=== PATIENT | male | born 1975 | race Two or more races ===

== ENCOUNTER 2024-10-16 15:08 | Inpatient (IN) | payer BC, OTHER ==
[~2024-10-16] VITALS: Ht 172.7 cm; Wt 98.6 kg
--- NOTE | 2024-10-16 16:12 | ED.PDOC ---
GI ASSESSMENT HPI Comments A 48 YEAR OLD MALE PRESENTS TO THE ED WITH COMPLAINT OF UPPER ABDOMINAL PAIN THAT RADIATES TO LOWER ABDOMEN, CONSTIPATION, AND SUPRAPUBIC PRESSURE. PATIENT STATES HE HAS BEEN EXPERIENCING UPPER ABDOMINAL PAIN THAT RADIATES TO HIS LOWER ABDOMEN, CONSTIPATION, AND SUPRAPUBIC PRESSURE FOR THE PAST 5 DAYS. PATIENT NOTES HIS SYMPTOMS STARTED AFTER EATING A LARGE MEAL 5 DAYS AGO. PATIENT ALSO NOTES THAT HE VOMITED ONE TIME AND NOTICED A SMALL AMOUNT OF BLOOD IN HIS VOMIT. PATIENT DENIES RECTAL BLEEDING, FEVER, CHILLS, SHORTNESS OF BREATH, CHEST PAIN, HEADACHE, OR OTHER COMPLAINTS. NO OTHER SYMPTOMS OR MODIFYING FACTORS AT THIS TIME. PATIENT IS ALERT, ORIENTED X 4, AND HAS STEADY GAIT. Chief Complaint: Abdominal Pain Time Seen by MD: 15:12 Reviewed Notes: Nurses Notes, Medications, Allergies Allergies: Coded Allergies: NO KNOWN ALLERGIES (Unverified , 10/16/24) Information Source: Patient Mode of Arrival: Ambulatory Timing: Days Duration: Since onset, Days Prehospital treatment: None Quality: Aching, Cramping, Colicky Vomitus: Food Particles, None Severity: Moderate Recent: None Recent Hx of: None Pain Location: Epigastric, RLQ, LLQ, Suprapubic, Other (UPPER ABDOMEN) Modifying Factors: Nothing Associated sign and symptoms: Nausea, Vomiting, Abdominal Pain Past Medical History PAST MEDICAL HISTORY: Denies Surgical History: Denies all surgeries Family History Family History: Reviewed,noncontributory to illness Social History Smoker: Non-Smoker Alcohol: Denies ETOH Use Drugs: Denies Drug Use Lives In: Home Constitutional: denies: chills, diaphoresis, fatigue, fever, malaise, sweats, weakness, others EENTM: denies: blurred vision, double vision, ear bleeding, ear discharge, ear drainage, ear pain, ear ringing, eye pain, eye redness, hearing loss, mouth p ain, mouth swelling, nasal discharge, nose bleeding, nose congestion, nose pain, photophobia, tearing, throat pain, throat swelling, voice changes, others Respiratory: denies: cough, hemoptysis, orthopnea, SOB at rest, shortness of br eath, SOB with excertion, stridor, wheezing, others Cardiovascular: denies: chest pain, dizzy spells, diaphoresis, Dyspnea on exertion, edema, irregular heart beat, left arm pain, lightheadedness, palpitations, PND, syncope, others Gastrointestinal: reports: abdominal pain, constipated, nausea, vomiting; denies: abdomen distended, blood streaked bowels, diarrhea, dysphagia, difficu lty swallowing, hematemesis, melena, poor appetite, poor fluid intake, rectal bleeding, rectal pain, others Genitourinary: reports: pain (SUPRAPUBIC PRESSURE); denies: burning, dysuria, flank pain, frequency, hematuria, incontinence, penile discharge, penile sore, testicle pain, testicle swelling, urgency, others Neurological: denies: dizziness, fainting, headache, left sided numbness, left sided weakness, numbness, paresthesia, pre-existing deficit, right sided numbness, right sided weakness, seizure, speech problems, tingling, tremors, weakness, others Musculoskeletal: denies: back pain, gout, joint pain, joint swelling, muscle pain, muscle stiffness, neck pain, others Integumetry: denies: bruises, change in color, change in hair/nails, dryness, laceration, lesions, lumps, rash, wounds, others Allergic/Immunocompromised: denies: Difficulty Healing, Frequent Infections, Hives, Itching, others Hematologic/Lymphatic: denies: anemia, blood clots, easy bleeding, easy bruising, swollen glands, others Endocrine: denies: excessive hunger, excessive sweating, excessive thirst, excessive urination, flushing, intolerance to cold, intolerance to heat, unexplained weight gain, unexplained weight loss, others Psychiatric: denies: anxiety, bipolar disorder, depression, hopeless, panic disorder, schizophrenia, sleepless, suicidal, others All Other Systems: Reviewed and Negative Physical Exam General Appearance: No Apparent Distress, Normal HEENT: Normal ENT Inspection, PERRL/EOMI, Pharynx Normal, TMs Normal Neck: Full Range of Motion, Non-Tender, Normal, Normal Inspection Respiratory: Chest Non-Tender, Lungs Clear, No Accessory Muscle Use, No Respiratory Distress, Normal Breath Sounds Cardiovascular: No Edema, No JVD, No Murmur, No Gallop, Normal Peripheral Pulses, Regular Rate/Rhythm Breast Exam: Deferred Gastrointestinal: Distended (MILDLY DISTENDED ABDOMEN NOTED.), Epigastric, LLQ, No Organomegaly, No Pulsatile Mass, Normal Bowel Sounds, RLQ, Soft, Tenderness ( LOWER ABD WITH GUARDING AND NO REBOUND TENDERNESS. ) Genitalia: Deferred Pelvic: Deferred Rectal: Heme negative stool, Hemorrhoids, Normal rectal tone, Tenderness (RECTAL REGION WITH ONE EXTERNAL HEMORRHOID, NO RECTAL BLEEDING AND BLOOD CLOTS. ) Extremities: No calf tenderness, Normal capillary refill, Normal inspection, Normal range of motion, Non-tender, No pedal edema Musculoskeletal : Apperance: Normal Neurologic: Alert, plastic extrusion operator II-XII nml as Tested, No Motor Deficits, Normal Affect, Normal Mood, No Sensory Deficits Cerebellar Function: Normal Reflexes: Normal Skin: Dry, Normal Color, Warm Peripheral Pulses: 2+ carotid (R), 2+ carotid (L) Lymphatic: No Adenopathy Was a procedure done? Was a procedure done?: No GI differential Dx Differential Diagnosis: Appendicitis, Bowel Obstruction, Constipation, Diverticular disease, Gastritis/PUD, GI hemorrhage, Urolithiasis, Kidney Stone X-Ray, Labs, Meds, VS Vital Signs Date Time Temp Pulse Resp B/P (MAP) Pulse Ox O2 Delivery O2 Flow Rate FiO2 10/16/24 20:00 72 10/16/24 19:18 98.3 79 25 122/72 (89) 96 98.3 10/16/24 19:18 98.3 79 25 122/72 (89) 96 98.3 10/16/24 19:18 79 25 96 Room Air* 0 21 10/16/24 18:59 81 23 95 Room Air* 0 21 10/16/24 18:59 98.8 81 23 140/83 (102) 95 98.8 10/16/24 18:11 97.9 92 17 160/93 (115) 98 97.9 10/16/24 15:55 98.9 97 16 132/89 (103) 98 98.9 10/16/24 15:55 97 16 98 Room Air 10/16/24 15:51 98.9 97 16 132/89 (103) 98 98.9 Lab Test 10/16/24 17:05 10/16/24 16:19 10/16/24 15:42 Range/Units Lactic Acid Level 2.0 0.4-2.0 mmol/L White Blood Count 18.2 H 4.4-10.8 10^3/uL Red Blood Count 5.90 4.5-5.90 10^6/uL Hemoglobin 17.5 13.5-17.5 g/dL Hematocrit 52.3 41.0-53.0 % Mean Corpuscular Volume 88.6 80.0-100.0 fL Mean Corpuscular Hemoglobin 29.7 28.0-32.0 pg Mean Corpuscular Hemoglobin Concent 33.5 32.0-36.0 g/dL Red Cell Distribution Width 13.5 11.8-14.3 % Platelet Count 247 140-450 10^3/uL Mean Platelet Volume 8.3 6.9-10.8 fL Neutrophils (%) (Auto) 78.1 37.0-80.0 % Lymphocytes (%) (Auto) 12.8 10.0-50.0 % Monocytes (%) (Auto) 8.7 0.0-12.0 % Eosinophils (%) (Auto) 0.1 0.0-7.0 % Basophils (%) (Auto) 0.3 0.0-2.0 % Neutrophils # (Auto) 14.2 H 1.6-8.6 10 ^3/uL Lymphocytes # (Auto) 2.3 0.4-5.4 10 ^3/uL Monocytes # (Auto) 1.6 H 0-1.3 10 ^3/uL Eosinophils # (Auto) 0 0-0.8 10 ^3/uL Basophils # (Auto) 0.1 0-0.2 10 ^3/uL Nucleated Red Blood Cells 0.1 % Prothrombin Time 10.9 9.3-11.8 sec Prothrombin Time INR 1.03 0.9-1.15 Sodium Level 142 136-145 mmol/L Potassium Level 4.1 3.5-5.1 mmol/L Chloride Level 108 H 98-107 mmol/L Carbon Dioxide Level 26 20-31 mmol/L Anion Gap 8 5-15 Blood Urea Nitrogen 12 9-23 mg/dL Creatinine 1.05 0.700-1.30 mg/dL Glomerular Filtration Rate Calc 88 >90 mL/min BUN/Creatinine Ratio 11.4 10.0-20.0 Serum Glucose 95 74-106 mg/dL Calcium Level 9.9 8.7-10.4 mg/dL Total Bilirubin 1.3 H 0.2-1.0 mg/dL Aspartate Amino Transferase (AST) 15 13-40 U/L Alanine Aminotransferase (ALT) 34 7-40 U/L Alkaline Phosphatase 80 46-116 U/L Total Protein 7.8 5.7-8.2 g/dL Albumin 4.8 3.2-4.8 g/dL Lipase 29 12-53 U/L Plasma/Serum Blood Alcohol < 3.0 <10 mg/dL Urine Color Light-orange Yellow Urine Clarity Ex.turbid Clear Urine pH 6.0 5.0-9.0 Urine Specific [place] 1.030 1.001-1.035 Urine Protein Trace H Negative Urine Ketones Negative Negative Urine Blood 2+ H Negative /uL Urine Nitrite Negative Negative Urine Bilirubin Negative Negative Urine Urobilinogen Normal Negative mg/dL Urine Leukocyte Esterase Negative Negative /uL Urine RBC 3 0 - 3 /hpf Urine Microscopic WBC 0-3 /HPF Urine Squamous Epithelial Cells Few <5 /hpf Urine Bacteria Few H None Seen /hpf Urine Mucus Few None Seen Urine Glucose Normal Normal mg/dL Urine Opiates Screen Neg NEGATIVE Urine Fentanyl Screen Neg NEGATIVE Urine Barbiturates Screen Neg NEGATIVE Urine Phencyclidine Screen Neg NEGATIVE Urine Amphetamines Screen Neg NEGATIVE Urine Benzodiazepines Screen Neg NEGATIVE Urine Cocaine Screen Neg NEGATIVE Urine Cannabinoids Screen Pos NEGATIVE Current Medications Medications (Trade) Dose Ordered Sig/Marco Route Start Time Stop Time Status Last Admin Sodium Chloride 1,000 ml @ 1,000 mls/hr Q1H ONCE IV 10/16/24 16:30 10/16/24 17:29 DC 10/16/24 16:33 Metronidazole 100 ml @ 100 mls/hr ONCE ONCE IV 10/16/24 18:00 10/16/24 18:59 DC 10/16/24 18:48 Levofloxacin/ Dextrose 100 ml @ 100 mls/hr ONCE ONCE IV 10/16/24 18:00 10/16/24 18:59 DC 10/16/24 20:00 Sodium Chloride 1,000 ml @ 1,000 mls/hr Q1H ONCE IV 10/16/24 18:15 10/16/24 19:14 DC 10/16/24 18:18 X-Ray, Labs, Meds, VS Comment EXTERNAL MEDICAL RECORDS REVIEWED: [NONE] INDEPENDENT HISTORIANS: [NONE] SOCIAL DETERMINANTS OF HEALTH: [NONE] LABS ORDERED: CBC, CMP, LIPASE, UA, PT INR REVIEWED AND INTERPRETED RESULTS: WBC 18.2, CANNABIS POSITIVE IMAGING ORDERED: CT ABD/PEL, XR CHEST TREATMENTS ORDERED: NS 2 L IV, MORPHINE 4 MG, ZOFRAN 4 MG IV, LEVAQUIN 500 MG IV, FLAGYL 500 MG IV PROCEDURES PERFORMED: NONE CRITICAL CARE TIME: YES, 45 MINUTES I HAVE DISCUSSED THE PATIENT WITH THE ATTENDING PHYSICIAN DR. APPIAH AND HE AGREES WITH THE PATIENT'S PLAN OF CARE. UPON MY PHYSICAL EXAMINATION, THE PATIENT HAD GUARDING NOTED UPON PALPATION TO HIS ABDOMEN AND MILD DISTENTION NOTED RIGHT, BUT NO REBOUND TENDERNESS NOTED UPON PALPATION TO HIS ABDOMEN. MY DIFFERENTIAL DIAGNOSIS INCLUDES, BOWEL OBSTRUCTION, GERD, GASTRITIS, CHOLELITHIASIS, DIVERTICULITIS, PANCREATITIS, COLITIS, APPENDICITIS. LABS ORDERED FOR THE PATIENT WHICH REVEALED AN ELEVATED WHITE BLOOD COUNT OF 18.2, BUT NO OTHER ACUTE FINDINGS. A CT SCAN OF THE PATIENT'S ABDOMEN AND PELVIS WAS DONE WHICH REVEALED ACUTE MID SIGMOID DIVERTICULITIS COMPLICATED WITH PERFORATION. DUE TO THE PATIENT'S CT SCAN RESULTS, I HAVE DETERMINED THE PATIENT NEEDS TO BE ADMITTED FOR FURTHER TREATMENT EVALUATION. THE ON-CALL GENERAL SURGEON WILL BE CONSULTED AND THE ON- CALL HOSPITALIST WILL BE CONTACTED FOR ADMISSION OF THIS PATIENT. 1754: I HAVE CONSULTED THE ON-CALL GENERAL SURGEON DR. LOWE REGARDING THIS PATIENT'S CASE AND CT SCAN RESULTS REVEALING PERFORATED DIVERTICULITIS AND HE HAS AGREED TO CONSULT ON THIS PATIENT'S CASE AND WILL COME TO SEE THE PATIENT SHORTLY AND POSSIBLY DO SURGERY FOR THE PATIENT. Images Reviewed?: Images reviewed and evaluated by me Time of 1ST Reevaluation: 18:00 Reevaluation 1ST: Unchanged Consultation: Surgery (1754: I HAVE CONSULTED THE ON-CALL GENERAL SURGEON DR. LOWE REGARDING THIS PATIENT'S CASE AND CT SCAN RESULTS REVEALING PERFORATED DIVERTICULITIS AND HE HAS AGREED TO CONSULT ON THIS PATIENT'S CASE.) Patient Education/Counseling: Diagnosis, Treatment Family Education/Counseling: Diagnosis, Treatment Departure 1 Departure Time of Disposition: 18:05 Impression: Primary Impression: Diverticulitis of colon with perforation Disposition: ADMITTED INPATIENT Condition: Serious Critical Care Note Critical Care Time?: Yes (45 min-critical care time only) Critical care comment: CRITCAL CARE WAS TIME SPENT PERSONALLY BY ME ON THE FOLLOWING ACTIVITIES: OBTAINING HISTORY OF THE PATIENT. DEVELOPMENT OF TREATMENT PLAN WITH PATIENT. EVALUATION OF PATIENT'S RESPONSE TO TREATMENT. EXAMINATION OF THE PATIENT X 3. INTERPRETATION OF CARDIAC OUTPUT MEASUREMENTS. ORDERING INTERVENTIONS. ORDERING AND REVIEW OF LABORATORY AND RADIOLOGY STUDIES. RE-EVALUATION OF PATIENT'S CONDITIONS 3 TIMES. REVIEW OF OLD CHARTS. DOCUMENTATION OF THE PATIENT HAD A HIGH PROBABILITY OF IMMINENT, LIFE- THREATENING DETERIORATION. CRITICAL CARE TIME EXCLUDES TIME SPENT PERFORMING BILLABLE PROCEDURES. Stability Stability form required: Yes Unstable for transfer: Requires medication, ED Physician Assesment, Possible rapid decline Heart Score Heart Score: Heart Score Response (Comments) Value History N/A 0 EKG N/A 0 Age N/A 0 Risk Factors N/A 0 Troponin N/A 0 Total 0 I personally scribed for LIBRADO FERGUSON ([email or web address]) on 10/16/24 at 16:12. Electronically submitted by Rick Pardo ([place]). I personally scribed for LIBRADO FERGUSON ([email or web address]) on 10/16/24 at 17:54. Electronically submitted by Rick Pardo ([place]). I personally scribed for LIBRADO FERGUSON ([email or web address]) on 10/16/24 at 18:03. Electronically submitted by Rick Pardo ([place]). I personally scribed for LIBRADO FERGUSON ([email or web address]) on 10/16/24 at 18:06. Electronically submitted by Rick Pardo ([place]). LIBRADO FERGUSON Oct 16, 2024 16:12
[2024-10-16] MEDS: SODIUM CHLORIDE 0.9% 1,000 ML IV ONE ×2 (16:33→18:18)
[2024-10-16 16:48] LABS: Basophils # (auto) 0.1 10 ^3/uL (0-0.2); Basophils % (auto) 0.3 % (0.0-2.0); Eosinophils # (auto) 0 10 ^3/uL (0-0.8); Eosinophils % (auto) 0.1 % (0.0-7.0); Hematocrit 52.3 % (41.0-53.0); Hemoglobin 17.5 g/dL (13.5-17.5); Lymphocytes # (auto) 2.3 10 ^3/uL (0.4-5.4); Lymphocytes % (auto) 12.8 % (10.0-50.0); Mean Corpuscular Hemoglobin 29.7 pg (28.0-32.0); Mean Corpuscular Hgb Conc. 33.5 g/dL (32.0-36.0); Mean Corpuscular Volume 88.6 fL (80.0-100.0); Monocytes # (auto) 1.6 10 ^3/uL (0-1.3); Monocytes % (auto) 8.7 % (0.0-12.0); Neutrophils # (auto) 14.2 10 ^3/uL (1.6-8.6); Neutrophils % (auto) 78.1 % (37.0-80.0); Nucleated Red Blood Cells % 0.1 %; Platelet Count (auto) 247 10^3/uL (140-450); Red Cell Distribution Width 13.5 % (11.8-14.3); White Blood Cell 18.2 10^3/uL (4.4-10.8)
[2024-10-16 17:02] LABS: INR 1.03 (0.9-1.15); Prothrombin Time 10.9 sec (9.3-11.8)
[2024-10-16 17:08] LABS: Alanine Aminotransferase 34 U/L (7-40); Albumin 4.8 g/dL (3.2-4.8); Alkaline Phosphatase 80 U/L (46-116); Anion Gap 8 (5-15); Aspartate Aminotransferase 15 U/L (13-40); BUN/Creatinine Ratio 11.4 (10.0-20.0); Blood Urea Nitrogen 12 mg/dL (9-23); Calcium 9.9 mg/dL (8.7-10.4); Carbon Dioxide 26 mmol/L (20-31); Glucose 95 mg/dL (74-106); Potassium 4.1 mmol/L (3.5-5.1); Sodium 142 mmol/L (136-145); Total Protein 7.8 g/dL (5.7-8.2)
[2024-10-16 17:11] LABS: Bilirubin, Total 1.3 mg/dL (0.2-1.0); Blood Alcohol < 3.0 mg/dL (<10); Chloride 108 mmol/L (98-107)
[2024-10-16 17:34] LABS: Lipase 29 U/L (12-53)
[2024-10-16 17:42] LABS: Urine Bacteria FEW /hpf (None Seen); Urine Blood 2+ /uL (Negative); Urine Clarity Ex.Turbid (Clear); Urine Color Light-Orange (Yellow); Urine Mucus FEW (None Seen); Urine Protein, UAD TRACE (Negative); Urine Squamous Epithelial Cell FEW /hpf (<5); Urine Urobilinogen Normal (Negative)
--- NOTE | 2024-10-16 17:47 | DVH ---
Procedure: CT CT AB PEL WO CON-NO ORAL OR IV 10/16/2024 04:03 PM Indication: ABD PAIN Comparison Study: None Technique: Axial images were obtained and reformatted in coronal and sagittal planes. All CT scans at this medical facility are performed using dose modulation techniques as appropriate to a performed e xam including the following: Automated exposure control was utilized; adjustment of the MA and/or KV according to patient size; and use of iterative reconstruction technique. CT Dose: CTDI volume is 22. 77 mGy. Dose-length product is 1196.44 mGy*cm FINDINGS: Lower Chest: Unremarkable. Hepatobiliary: Mild hepatomegaly and hepatic steatosis. Spleen: Unremarkable. Pancreas: Unremarkable. Adrenal Glands: Unremarkable. tract: The kidneys are normal in size bilaterally without hydronephrosis or nephrolithiasis. A sub centimeter cyst is seen in the lower pole of the left kidney. The urinary bladder is unremarkable. GI tract: The stomach is grossly normal in appearance. No evidence of small bowel obstruction. Scatte red colonic diverticula with evidence of diverticulitis in mid sigmoid colon complicated with perfora tion. Small amount of air is seen in the left lower quadrant extending superiorly along the left pso as muscle. Moderate inflammatory changes noted in the left lower quadrant. No drainable fluid collec tion is identified in this unenhanced study. Trace free fluid is seen in the lower abdomen. The part ially seen appendix is unremarkable. Lymphatics: No mesenteric, retroperitoneal or periportal lymphadenopathy. Vasculature: The abdominal aorta is normal in in caliber. Pelvic Organs: Unremarkable Bones/soft tissues: No acute abnormality. Other: None. IMPRESSION: 1. Acute mid sigmoid diverticulosis complicated with perforation. Small to moderate amount of air not ed in the left lower quadrant extending superiorly along left psoas muscle. Trace fluid is seen in t he low abdomen. No evidence of abscess formation in this limited unenhanced study. 2. Hepatomegaly and hepatic steatosis. Critical Result: Bowel perforation Findings discussed with LIBRADO FERGUSON at 10/16/2024 05:44 PM, and acknowledged receipt and understandi ng of the findings. ..
[2024-10-16 17:53] LABS: Cannabinoid Screen, Urine Pos (NEGATIVE)
[2024-10-16 17:54] LABS: Amphetamine Screen, Urine Neg (NEGATIVE); Barbiturate Scree,Urine Neg (NEGATIVE); Benzodiazephine Screen, Urine Neg (NEGATIVE); Cocaine Screen, Urine Neg (NEGATIVE); Opiate Scree,Urine Neg (NEGATIVE); Phencyclidine Screen, Urine Neg (NEGATIVE)
[2024-10-16] MEDS: MORPHINE SULFATE 4 MG/ML SYR/VIAL IV ONE (18:00)
[2024-10-16] MEDS: ONDANSETRON HCL 4 MG/2 ML VIAL IV ONE (18:00)
[2024-10-16] MEDS: metroNIDAZOLE 500MG/100ML 100 ML IV ONE (18:48)
[2024-10-16 18:59] VITALS: PULSE 81; RESP 23; O2SAT 95
--- NOTE | 2024-10-16 19:00 | DVH ---
CHEST RADIOGRAPH Indication: PRESURGERY Technique: Single frontal view of the chest was obtained Comparison: None FINDINGS: Lines and Tubes: None Lungs: No focal consolidation. Pleura: No effusion. No pneumothorax. Cardiomediastinal contours: Unremarkable Bones: No acute osseous abnormality. IMPRESSION: 1. No acute cardiopulmonary disease.
[2024-10-16 19:18] VITALS: PULSE 79; RESP 25; O2SAT 96
--- NOTE | 2024-10-16 19:22 | DVHINCON2 ---
Date of service: Oct 16, 2024 History of Present Illness 48-year-old male complaining of nausea or vomiting earlier in the week but it is for past three days he has been complaining of left lower quadrant suprapubic abdominal pain. Patient also has reported constipation over the past several days and low-grade fever. Past Medical History None Past Surgical History None Family History Noncontributory Social History No alcohol, tobacco, IV drug use Allergies: Coded Allergies: NO KNOWN ALLERGIES (Unverified , 10/16/24) Vital Signs Vital Signs Date Time Temp Pulse Resp B/P (MAP) Pulse Ox O2 Delivery O2 Flow Rate FiO2 10/16/24 18:59 81 23 95 Room Air* 0 21 10/16/24 18:59 98.8 140/83 (102) 98.8 Physical Exam GEN: Age-appropriate male in no acute distress. Alert. HEENT: Normocephalic atraumatic. Moist mucous membranes. Anicteric sclerae. CV: RRR Respiratory: CTAB ABD: Localized left lower quadrant and suprapubic tenderness to palpation with minimal guarding. Nondistended. CT of the abdomen and pelvis: Acute mid sigmoid diverticulosis complicated with perforation with small to moderate amount of air along the left lower quadrant extending superiorly along the left psoas muscle with small trace fluid in the lower abdomen. No abscess formation. 1. Acute mid sigmoid diverticulosis complicated with perforation. Small to moderate amount of air noted in the left lower quadrant extending superiorly along left psoas muscle. Trace fluid is seen in the low abdomen. No evidence of abscess formation in this limited unenhanced study. 2. Hepatomegaly and hepatic steatosis. Labs/Diagnostic Data Labs Test 10/16/24 17:05 10/16/24 16:19 10/16/24 15:42 Range/Units Lactic Acid Level 2.0 0.4-2.0 mmol/L White Blood Count 18.2 H 4.4-10.8 10^3/uL Red Blood Count 5.90 4.5-5.90 10^6/uL Hemoglobin 17.5 13.5-17.5 g/dL Hematocrit 52.3 41.0-53.0 % Mean Corpuscular Volume 88.6 80.0-100.0 fL Mean Corpuscular Hemoglobin 29.7 28.0-32.0 pg Mean Corpuscular Hemoglobin Concent 33.5 32.0-36.0 g/dL Red Cell Distribution Width 13.5 11.8-14.3 % Platelet Count 247 140-450 10^3/uL Mean Platelet Volume 8.3 6.9-10.8 fL Neutrophils (%) (Auto) 78.1 37.0-80.0 % Lymphocytes (%) (Auto) 12.8 10.0-50.0 % Monocytes (%) (Auto) 8.7 0.0-12.0 % Eosinophils (%) (Auto) 0.1 0.0-7.0 % Basophils (%) (Auto) 0.3 0.0-2.0 % Neutrophils # (Auto) 14.2 H 1.6-8.6 10 ^3/uL Lymphocytes # (Auto) 2.3 0.4-5.4 10 ^3/uL Monocytes # (Auto) 1.6 H 0-1.3 10 ^3/uL Eosinophils # (Auto) 0 0-0.8 10 ^3/uL Basophils # (Auto) 0.1 0-0.2 10 ^3/uL Nucleated Red Blood Cells 0.1 % Prothrombin Time 10.9 9.3-11.8 sec Prothrombin Time INR 1.03 0.9-1.15 Sodium Level 142 136-145 mmol/L Potassium Level 4.1 3.5-5.1 mmol/L Chloride Level 108 H 98-107 mmol/L Carbon Dioxide Level 26 20-31 mmol/L Anion Gap 8 5-15 Blood Urea Nitrogen 12 9-23 mg/dL Creatinine 1.05 0.700-1.30 mg/dL Glomerular Filtration Rate Calc 88 >90 mL/min BUN/Creatinine Ratio 11.4 10.0-20.0 Serum Glucose 95 74-106 mg/dL Calcium Level 9.9 8.7-10.4 mg/dL Total Bilirubin 1.3 H 0.2-1.0 mg/dL Aspartate Amino Transferase (AST) 15 13-40 U/L Alanine Aminotransferase (ALT) 34 7-40 U/L Alkaline Phosphatase 80 46-116 U/L Total Protein 7.8 5.7-8.2 g/dL Albumin 4.8 3.2-4.8 g/dL Lipase 29 12-53 U/L Plasma/Serum Blood Alcohol < 3.0 <10 mg/dL Urine Color Light-orange Yellow Urine Clarity Ex.turbid Clear Urine pH 6.0 5.0-9.0 Urine Specific [place] 1.030 1.001-1.035 Urine Protein Trace H Negative Urine Ketones Negative Negative Urine Blood 2+ H Negative /uL Urine Nitrite Negative Negative Urine Bilirubin Negative Negative Urine Urobilinogen Normal Negative mg/dL Urine Leukocyte Esterase Negative Negative /uL Urine RBC 3 0 - 3 /hpf Urine Microscopic WBC 0-3 /HPF Urine Squamous Epithelial Cells Few <5 /hpf Urine Bacteria Few H None Seen /hpf Urine Mucus Few None Seen Urine Glucose Normal Normal mg/dL Urine Opiates Screen Neg NEGATIVE Urine Fentanyl Screen Neg NEGATIVE Urine Barbiturates Screen Neg NEGATIVE Urine Phencyclidine Screen Neg NEGATIVE Urine Amphetamines Screen Neg NEGATIVE Urine Benzodiazepines Screen Neg NEGATIVE Urine Cocaine Screen Neg NEGATIVE Urine Cannabinoids Screen Pos NEGATIVE Assessment 1. Sigmoid diverticulitis with small perforation but clinically stable Plan/Recommendation 1. Continue with IV antibiotics and conservative treatment. Discussed with the patient that if the antibiotic treatment fails he may end up with expiratory laparotomy with sigmoidectomy with colostomy. Patient agrees to the plan. Plan discussed with: Patient KALPANA LOWE MD Oct 16, 2024 19:22
[2024-10-16] MEDS: levoFLOXacin 500MG 100 ML IV ONE (20:00)
--- NOTE | 2024-10-16 20:05 | DVHHP2 ---
History of Present Illness Reason for Visit: Diverticulitis of colon with perforation History of Present Illness The patient is a 48-year-old male who denies past medical history presented to [facility] ED with complaint of acute abdominal pain. Patient reports symptoms progressively get worse with upper abdominal pain that radiates to lower abdomen, associated nausea, vomiting, constipation, suprapubic pressure for the past 5 days, getting worse today that prompted this visit. Patient was seen and evaluated in the ED, laboratory data shows WBC 18.2, platelets 247, sodium 142, potassium 4.1, BUN 12, creatinine 1.05, GFR 88, glucose 95, total bilirubin 1.3, lipase 21. Abdomen/pelvis CT revealing acute mid sigmoid diverticulosis complicated with perforation, hepatomegaly and hepatic steatosis, no evidence of abscess formation. Patient was started on IV antibiotic regimen Flagyl, please see medication orders section in the computer. On my assessment, patient denied chest pain, no headache, no dizziness, no shortness of breath, no diarrhea, no nausea, no vomiting, no fever, no chills. Patient was admitted for further evaluation and medical management. Past Medical History Denies past medical history Past Surgical History Denies all surgeries Family History Reviewed, noncontributory to the management of this case. Past Social History The patient lives at home, denies smoking, alcohol or illicit drugs abuse. Review of Systems Constitutional: No: Fever, Chills, Sweats, Weakness, Malaise, Other Eyes: No: Pain, Vision change, Conjunctivae inflammation, Eyelid inflammation, Other, Redness ENT: No: Ear pain, Ear discharge, Nose pain, Nose discharge, Nose congestion, Mouth pain, Mouth swelling, Throat pain, Throat swelling, Other Respiratory: No: Cough, Dry, Shortness of breath, SOB with excertion, Wheezing, Hemoptysis, Pleuritic Pain, Sputum, Wheezing, Other Cardiovascular: No: Chest Pain, Palpitations, Orthopnea, Paroxysmal Noc. Dyspnea, Edema, Lt Headedness, Other Gastrointestinal: Nausea, Vomiting, Abdominal Pain, Constipation; No: Diarrhea, Melena, Hematochezia, Other Genitourinary: No Dysuria, No Frequency, No Incontinence, No Hematuria, No Retention, No Other Musculoskeletal: No: other, neck pain, shoulder pain, arm pain, back pain, hand pain, leg pain, foot pain Skin: No: Rash, Lesions, Jaundice, Bruising, Other Neurological: No: Weakness, Numbness, Incoordination, Change in speech, Confusion, Seizures, Other Allergies: Coded Allergies: NO KNOWN ALLERGIES (Unverified , 10/16/24) Medications Current Medications Medications Dose Ordered Sig/Marco Route Start Time Stop Time Status Last Admin Dose Admin Levofloxacin/ Dextrose 100 ml @ 100 mls/hr DAILY@1800 IV 10/17/24 18:00 Metronidazole 100 ml @ 100 mls/hr Q8HR IV 10/17/24 06:00 Exam Vital Signs Vital Signs Date Time Temp Pulse Resp B/P (MAP) Pulse Ox O2 Delivery O2 Flow Rate FiO2 10/16/24 18:59 81 23 95 Room Air* 0 21 10/16/24 18:59 98.8 140/83 (102) 98.8 General Appearance: Alert, Oriented X3, Cooperative, No acute distress HEENT: Atraumatic, PERRLA, EOMI, Mucous membr. moist/pink Respiratory: Clear to auscultation, Normal air movement Cardiovascular: Regular rate, Normal S1, Normal S2, No murmurs Abdominal: Normal bowel sounds, Soft, No hepatospenomegaly, No masses, Other (Reports tenderness) Extremities: No clubbing, No cyanosis, No edema, Normal pulses, No tenderness/swelling Skin: No rashes, No breakdown, No significant lesion Neuro: Normal gait, Normal speech, Strength at 5/5 X4 ext, Normal tone, Sensation intact, Cranial nerves 3-12 NL, Reflexes 2+ Psych/Mental Status: Mental status NL, Mood NL Labs/Xrays Labs Test 10/16/24 17:05 10/16/24 16:19 10/16/24 15:42 Range/Units Lactic Acid Level 2.0 0.4-2.0 mmol/L White Blood Count 18.2 H 4.4-10.8 10^3/uL Red Blood Count 5.90 4.5-5.90 10^6/uL Hemoglobin 17.5 13.5-17.5 g/dL Hematocrit 52.3 41.0-53.0 % Mean Corpuscular Volume 88.6 80.0-100.0 fL Mean Corpuscular Hemoglobin 29.7 28.0-32.0 pg Mean Corpuscular Hemoglobin Concent 33.5 32.0-36.0 g/dL Red Cell Distribution Width 13.5 11.8-14.3 % Platelet Count 247 140-450 10^3/uL Mean Platelet Volume 8.3 6.9-10.8 fL Neutrophils (%) (Auto) 78.1 37.0-80.0 % Lymphocytes (%) (Auto) 12.8 10.0-50.0 % Monocytes (%) (Auto) 8.7 0.0-12.0 % Eosinophils (%) (Auto) 0.1 0.0-7.0 % Basophils (%) (Auto) 0.3 0.0-2.0 % Neutrophils # (Auto) 14.2 H 1.6-8.6 10 ^3/uL Lymphocytes # (Auto) 2.3 0.4-5.4 10 ^3/uL Monocytes # (Auto) 1.6 H 0-1.3 10 ^3/uL Eosinophils # (Auto) 0 0-0.8 10 ^3/uL Basophils # (Auto) 0.1 0-0.2 10 ^3/uL Nucleated Red Blood Cells 0.1 % Prothrombin Time 10.9 9.3-11.8 sec Prothrombin Time INR 1.03 0.9-1.15 Sodium Level 142 136-145 mmol/L Potassium Level 4.1 3.5-5.1 mmol/L Chloride Level 108 H 98-107 mmol/L Carbon Dioxide Level 26 20-31 mmol/L Anion Gap 8 5-15 Blood Urea Nitrogen 12 9-23 mg/dL Creatinine 1.05 0.700-1.30 mg/dL Glomerular Filtration Rate Calc 88 >90 mL/min BUN/Creatinine Ratio 11.4 10.0-20.0 Serum Glucose 95 74-106 mg/dL Calcium Level 9.9 8.7-10.4 mg/dL Total Bilirubin 1.3 H 0.2-1.0 mg/dL Aspartate Amino Transferase (AST) 15 13-40 U/L Alanine Aminotransferase (ALT) 34 7-40 U/L Alkaline Phosphatase 80 46-116 U/L Total Protein 7.8 5.7-8.2 g/dL Albumin 4.8 3.2-4.8 g/dL Lipase 29 12-53 U/L Plasma/Serum Blood Alcohol < 3.0 <10 mg/dL Urine Color Light-orange Yellow Urine Clarity Ex.turbid Clear Urine pH 6.0 5.0-9.0 Urine Specific [place] 1.030 1.001-1.035 Urine Protein Trace H Negative Urine Ketones Negative Negative Urine Blood 2+ H Negative /uL Urine Nitrite Negative Negative Urine Bilirubin Negative Negative Urine Urobilinogen Normal Negative mg/dL Urine Leukocyte Esterase Negative Negative /uL Urine RBC 3 0 - 3 /hpf Urine Microscopic WBC 0-3 /HPF Urine Squamous Epithelial Cells Few <5 /hpf Urine Bacteria Few H None Seen /hpf Urine Mucus Few None Seen Urine Glucose Normal Normal mg/dL Urine Opiates Screen Neg NEGATIVE Urine Fentanyl Screen Neg NEGATIVE Urine Barbiturates Screen Neg NEGATIVE Urine Phencyclidine Screen Neg NEGATIVE Urine Amphetamines Screen Neg NEGATIVE Urine Benzodiazepines Screen Neg NEGATIVE Urine Cocaine Screen Neg NEGATIVE Urine Cannabinoids Screen Pos NEGATIVE PATIENT: DAYANA JOSUE ACCT: [id number] UNIT: [id number] : 1975 LOC: ER ROOM / BED: / AGE / SEX: 48 / M ADM STATUS: REG ER SERVICE [id number] ORDERING PHYSICIAN: LIBRADO FERGUSON PROCEDURE(s): ABPL - CT AB PEL WO CON-NO ORAL OR IV REASON: ABD PAIN ORDER NUMBER(s): [id number], ACCESSION NUMBER(s): [id number] Procedure: CT CT AB PEL WO CON-NO ORAL OR IV 10/16/2024 04:03 PM Indication: ABD PAIN Comparison Study: None Technique: Axial images were obtained and reformatted in coronal and sagittal planes. All CT scans at this medical facility are performed using dose modulation techniques as appropriate to a performed exam including the following: Automated exposure control was utilized; adjustment of the MA and/or KV according to patient size; and use of iterative reconstruction technique. CT Dose: CTDI volume is 22.77 mGy. Dose-length product is 1196.44 mGy*cm FINDINGS: Lower Chest: Unremarkable. Hepatobiliary: Mild hepatomegaly and hepatic steatosis. Spleen: Unremarkable. Pancreas: Unremarkable. Adrenal Glands: Unremarkable. tract: The kidneys are normal in size bilaterally without hydronephrosis or nephrolithiasis. A subcentimeter cyst is seen in the lower pole of the left kidney. The urinary bladder is unremarkable. GI tract: The stomach is grossly normal in appearance. No evidence of small bowel obstruction. Scattered colonic diverticula with evidence of diverticulitis in mid sigmoid colon complicated with perforation. Small amount of air is seen in the left lower quadrant extending superiorly along the left psoas muscle. Moderate inflammatory changes noted in the left lower quadrant. No drainable fluid collection is identified in this unenhanced study. Trace free fluid is seen in the lower abdomen. The partially seen appendix is unremarkable. Lymphatics: No mesenteric, retroperitoneal or periportal lymphadenopathy. Vasculature: The abdominal aorta is normal in in caliber. Pelvic Organs: Unremarkable Bones/soft tissues: No acute abnormality. Other: None. IMPRESSION: 1. Acute mid sigmoid diverticulosis complicated with perforation. Small to moderate amount of air noted in the left lower quadrant extending superiorly along left psoas muscle. Trace fluid is seen in the low abdomen. No evidence of abscess formation in this limited unenhanced study. 2. Hepatomegaly and hepatic steatosis. Critical Result: Bowel perforation ORDERING PHYSICIAN: LIBRADO FERGUSON PROCEDURE(s): CXR1 - CHEST XRAY 1 VIEW REASON: PRESURGERY ORDER NUMBER(s): [id number], ACCESSION NUMBER(s): [id number] CHEST RADIOGRAPH Indication: PRESURGERY Technique: Single frontal view of the chest was obtained Comparison: None FINDINGS: Lines and Tubes: None Lungs: No focal consolidation. Pleura: No effusion. No pneumothorax. Cardiomediastinal contours: Unremarkable Bones: No acute osseous abnormality. IMPRESSION: 1. No acute cardiopulmonary disease. Assessment/Plan Assessment/Plan Acute abdominal pain Diverticulitis of colon with perforation Leukocytosis, unspecified Plan 1. Admit to telemetry unit 2. Breathing treatment 3. Pain control management 4. IV antibiotic management 5. Management of fluids and electrolytes 6. Consultation for surgery 7. Diagnostic test CT of the abdomen/pelvis 8. DVT prophylaxis-on SCDs 9. Repeat labs CBC, CMP in a.m. 10. Continue with current medical management 11. Treatment plan discussed with patient and RN. Patient verbalized unde rstanding. Plan discussed with: Patient, Other (RN) My Orders Orders - SOLANGE JOY DNP Procedure Category Date Status Time Admit ADMIT 10/16/24 Transmitted 20:02 Allergies CHAPO 10/16/24 Transmitted 20:02 Code Status CODE 10/16/24 Transmitted 20:02 0.9% Ns 1000 Ml PHA 10/16/24 Transmitted 20:15 Comprehensive LAB 10/17/24 Verified Metabolic Panel 04:00 Condition: Serious CHAPO 10/16/24 Transmitted 20:02 Acetaminophen Tablet PHA 10/16/24 Transmitted (Tylenol Tablet) 20:15 Bedrest With Bathroom CHAPO 10/16/24 Transmitted Privileg 20:02 Morphine Sulfate PHA 10/16/24 Transmitted Injection 20:15 Sequential CHAPO 10/16/24 Transmitted Compression Device Nitroglycerin PHA 10/16/24 Transmitted Sublingual (Ntrostat 20:15 Morphine Sulfate PHA 10/16/24 Verified Injection 20:15 Stat Ekg For Chest CHAPO 10/16/24 Verified Pain 20:02 Notify Md Of Changes [facility] 10/16/24 Verified From Base 20:02 Rouge Miller For [facility] 10/16/24 Verified 24 Hours 20:02 Emergency Dysrhythmia [facility] 10/16/24 Verified Protocol 20:02 Rhythm Strips Once [facility] 10/16/24 Verified Every Shift 20:02 Oxygen By Nasal RT 10/16/24 Verified Cannula 20:02 Oxygen Per Hour RT 10/16/24 Transmitted 20:02 Hydrocodone-Acet PHA 10/16/24 Transmitted 5/325mg Tab (West 20:15 Ondansetron Hcl PHA 10/16/24 Transmitted (Zofran) 20:15 Docusate Sodium PHA 10/16/24 Transmitted Capsule (Colace 20:15 Problem List: (1) Acute abdominal pain (2) Diverticulitis of colon with perforation (3) Leukocytosis, unspecified Date of Service: Oct 16, 2024 Billing Provider: SOLANGE JOY DNP Common Visit Codes: [id number] INP/OBS CARE (HIGH) SOLANGE JOY DNP Oct 16, 2024 20:05
[2024-10-16] MEDS ORDERED: NITROGLYCERIN 0.4 MG SL TAB SL PRN (20:15)
[2024-10-16] MEDS ORDERED: ACETAMINOPHEN 325 MG TAB PO PRN (20:15)
[2024-10-16] MEDS ORDERED: MORPHINE SULFATE INJ 2 MG/ml SYRG IV PRN (20:15)
[2024-10-16] MEDS ORDERED: HYDROcodone-ACET 5/325MG TAB PO PRN (20:15)
[2024-10-16] MEDS ORDERED: DOCUSATE SOD 100 MG CAP PO PRN (20:15)
[2024-10-16] MEDS: SODIUM CHLORIDE 0.9% 1,000 ML IV SCH (20:28)
[2024-10-16 22:37] VITALS: BP 134/70; PULSE 76; RESP 18; TEMP 99.2; O2SAT 94
[2024-10-16] MEDS: MORPHINE SULFATE INJ 2 MG/ml SYRG IV PRN (23:03)
[2024-10-17] VITALS (7 sets, daily range): BP systolic 96–134; BP diastolic 55–82; PULSE 59–71; RESP 16–20; TEMP 97.9–99; O2SAT 95–97
[2024-10-17] MEDS ORDERED: KETOROLAC TROMETH 30 MG/ML 1ML VIAL IV PRN (01:45)
[2024-10-17] MEDS: metroNIDAZOLE 500MG/100ML 100 ML IV SCH (05:28)
[2024-10-17 09:17] LABS: Basophils # (auto) 0 10 ^3/uL (0-0.2); Basophils % (auto) 0.3 % (0.0-2.0); Eosinophils # (auto) 0 10 ^3/uL (0-0.8); Eosinophils % (auto) 0.3 % (0.0-7.0); Hematocrit 44.5 % (41.0-53.0); Hemoglobin 15.3 g/dL (13.5-17.5); Lymphocytes # (auto) 1.8 10 ^3/uL (0.4-5.4); Lymphocytes % (auto) 12.5 % (10.0-50.0); Mean Corpuscular Hemoglobin 30.5 pg (28.0-32.0); Mean Corpuscular Hgb Conc. 34.4 g/dL (32.0-36.0); Mean Corpuscular Volume 88.5 fL (80.0-100.0); Monocytes # (auto) 1.5 10 ^3/uL (0-1.3); Monocytes % (auto) 10.6 % (0.0-12.0); Neutrophils % (auto) 76.3 % (37.0-80.0); Nucleated Red Blood Cells % 0.1 %; Platelet Count (auto) 212 10^3/uL (140-450); Red Blood Cells 5.02 10^6/uL (4.5-5.90); Red Cell Distribution Width 13.9 % (11.8-14.3); White Blood Cell 14.4 10^3/uL (4.4-10.8)
--- NOTE | 2024-10-17 09:20 | DVHPN2 ---
Subjective No nausea/vomiting but continues to complain of abdominal pain; afraid to start fluids/foot Reviewed: Care Plan, H&P, Labs, Medications, Previous Orders, Radiology, Other (Consultation) Changes from previous H/P or p: Changes Objective Vitals Vital Signs Date Time Temp Pulse Resp B/P (MAP) Pulse Ox O2 Delivery O2 Flow Rate FiO2 10/17/24 08:00 65 16 96 Room Air* 0 21 10/17/24 05:00 97.9 101/55 (70) 97.9 Intake/Output Intake and Output 10/17/24 07:00 Intake Total 1775 ml Balance 1775 ml Intake Oral 355 ml IV Total 1420 ml # Voids 1 General Appearance: Alert, Oriented X3, Cooperative, No acute distress HEENT: Atraumatic Lungs: Clear to auscultation, Normal air movement Cardiovascular: Regular rate, Normal S1, Normal S2 Abdomen: Normal bowel sounds, Soft, Other (Diffuse tenderness) Extremities: No edema Neuro: Normal speech, Cranial nerves 3-12 NL Psych/Mental Status: Mental status NL, Mood NL Medications Current Medications Medications Dose Ordered Sig/Marco Route Start Time Stop Time Status Last Admin Dose Admin Levofloxacin/ Dextrose 100 ml @ 100 mls/hr DAILY@1800 IV 10/17/24 18:00 Metronidazole 100 ml @ 100 mls/hr Q8HR IV 10/17/24 06:00 10/17/24 05:28 100 MLS/HR Sodium Chloride 1,000 ml @ 60 mls/hr [id number] IV 10/16/24 20:15 10/16/24 20:28 60 MLS/HR Acetaminophen/ Hydrocodone Bitart 1 tab Q4HP PRN PO 10/16/24 20:15 Ondansetron HCl 4 mg Q4HP PRN IV 10/16/24 20:15 Docusate Sodium 100 mg BIDPRN PRN PO 10/16/24 20:15 Acetaminophen 650 mg Q6HP PRN PO 10/16/24 20:15 Morphine Sulfate 2 mg Q4HPRN PRN IV 10/16/24 20:15 10/16/24 23:03 2 MG Nitroglycerin 0.4 mg Q5MINP PRN SL 10/16/24 20:15 Morphine Sulfate 2 mg Q30M PRN IV 10/16/24 20:15 Ketorolac Tromethamine 15 mg Q8HP PRN IV 10/17/24 01:45 10/22/24 01:44 UNV Laboratory Results Laboratory Tests 10/17/24 08:58 Chemistry Test 10/16/24 16:19 10/17/24 08:58 Albumin 4.8 g/dL (3.2-4.8) Pending Calcium Level 9.9 mg/dL (8.7-10.4) Pending Total Protein 7.8 g/dL (5.7-8.2) Pending Coagulation Test 10/16/24 16:19 Prothrombin Time 10.9 sec (9.3-11.8) Prothrombin Time INR 1.03 (0.9-1.15) Lipid panel Test 10/16/24 16:19 Lipase 29 U/L (12-53) LFT Test 10/16/24 16:19 10/17/24 08:58 Alanine Aminotransferase (ALT) 34 U/L (7-40) Pending Alkaline Phosphatase 80 U/L (46-116) Pending Aspartate Amino Transferase (AST) 15 U/L (13-40) Pending Total Bilirubin 1.3 mg/dL (0.2-1.0) H Pending Urinalysis Test 10/16/24 15:42 Urine Color Light-orange (Yellow) Urine Clarity Ex.turbid (Clear) Urine pH 6.0 (5.0-9.0) Urine Specific [place] 1.030 (1.001-1.035) Urine Protein Trace (Negative) H Urine Ketones Negative (Negative) Urine Blood 2+ /uL (Negative) H Urine Nitrite Negative (Negative) Urine Bilirubin Negative (Negative) Urine Urobilinogen Normal mg/dL (Negative) Urine Leukocyte Esterase Negative /uL (Negative) Urine RBC 3 /hpf (0 - 3) Urine Microscopic WBC /HPF (0-3) Urine Squamous Epithelial Cells Few /hpf (<5) Urine Bacteria Few /hpf (None Seen) H Urine Mucus Few (None Seen) Urine Glucose Normal mg/dL (Normal) Labs and/or images reviewed: Labs reviewed by me, Image(s) reviewed by me Assessment/Plan Assessment/Plan A 48-year-old male patient; with past medical history of marijuana use disorder; who presented to the emergency department with acute abdomen. #Acute abdomen with nausea/vomiting/abdominal pain secondary to sigmoid diverticulitis with perforation; no surgical intervention at this time; reviewed imaging studies; patient wants to be kept NPO for now; continue IV fluids and IV antibiotics; continue pain management as indicated; surgery is following; continue monitoring #Sepsis with leukocytosis due to sigmoid diverticulitis with perforation; details and management as above; continue monitoring #Suspected DARSHAN in the setting of sepsis; most likely vasomotor nephropathy; continue IV fluids; avoid nephrotoxic agents; continue monitoring #Elevated total bilirubin in the setting of sepsis with hepatomegaly and hepatic steatosis; avoid hepatotoxic agents; continue monitoring #Marijuana use disorder; reviewed drug screen; counseled on marijuana use cessation for 17 minutes; continue monitoring #Obesity; counseled the patient importance of adopting healthy lifestyle with diet and exercise in order to lose weight; continue monitoring Goals of care discussed with the patient for 20 minutes; full code Late Entry. This medical document was created using an electronic medical record system with computerized dictation system. Although this document has been carefully reviewed, there might still be some phonetic and typographical errors. These areas are purely typographical due to imperfections of the software programs, and do not reflect any compromise in the patient's medical care. Plan discussed with: Patient, Spouse, Other (Nurse) Date of Service: Oct 17, 2024 Billing Provider: EL CARDONA MD Common Visit Codes: [id number] INP/OBS CARE(HIGH) Secondary Visit Codes: 72421-[id number] CHNG SMOKING >10MIN (Counseled on marijuana use cessation for 17 minutes), [id number] CARE PLAN 30 MINUTES (20 minutes) EL CARDONA MD Oct 17, 2024 09:20
[2024-10-17 09:37] LABS: Alanine Aminotransferase 26 U/L (7-40); Alkaline Phosphatase 64 U/L (46-116); Anion Gap 6 (5-15); BUN/Creatinine Ratio 12.4 (10.0-20.0); Blood Urea Nitrogen 13 mg/dL (9-23); Calcium 9.4 mg/dL (8.7-10.4); Carbon Dioxide 26 mmol/L (20-31); Glucose 106 mg/dL (74-106); Potassium 4.7 mmol/L (3.5-5.1); Sodium 140 mmol/L (136-145); Total Protein 6.3 g/dL (5.7-8.2)
[2024-10-17 09:38] LABS: Aspartate Aminotransferase 11 U/L (13-40); Bilirubin, Total 1.6 mg/dL (0.2-1.0); Chloride 108 mmol/L (98-107)
--- NOTE | 2024-10-17 14:47 | MEDREC ---
[facility] ASP Intervention Section I [facility] ASP Intervention: Dose optimization(PK/PD), Review courses of therapy (PLEASE CONSIDER INCREASING DOSE OF LEVOFLOXACIN FROM 500 MG TO 750 MG IV DAILY IN THE SETTING OF DIVERTICULITIS) ARIN CONTRERAS [facility] Oct 17, 2024 14:46
--- NOTE | 2024-10-17 15:10 | DVHPN2 ---
Progress Note - Dictate Date Seen: Oct 17, 2024 Medical Necessity Reason Pt with a Central, PICC or Fol: No Subjective E: no major events o/n. feels better. vital signs Vital Sign Date Time Temp Pulse Resp B/P (MAP) Pulse Ox O2 Delivery O2 Flow Rate FiO2 10/17/24 13:00 98.1 68 20 134/82 (99) 95 98.1 10/17/24 08:00 Room Air* 0 21 Total Intake and Output 10/16/24 10/16/24 10/17/24 15:00 23:00 07:00 Intake Total 1320 ml 455 ml Balance 1320 ml 455 ml medications Current Medications Medications Dose Ordered Sig/Marco Route Start Time Stop Time Status Last Admin Dose Admin Levofloxacin/ Dextrose 100 ml @ 100 mls/hr DAILY@1800 IV 10/17/24 18:00 Metronidazole 100 ml @ 100 mls/hr Q8HR IV 10/17/24 06:00 10/17/24 14:12 100 MLS/HR Sodium Chloride 1,000 ml @ 60 mls/hr [id number] IV 10/16/24 20:15 10/17/24 14:12 60 MLS/HR Acetaminophen/ Hydrocodone Bitart 1 tab Q4HP PRN PO 10/16/24 20:15 Ondansetron HCl 4 mg Q4HP PRN IV 10/16/24 20:15 Docusate Sodium 100 mg BIDPRN PRN PO 10/16/24 20:15 Acetaminophen 650 mg Q6HP PRN PO 10/16/24 20:15 Morphine Sulfate 2 mg Q4HPRN PRN IV 10/16/24 20:15 10/16/24 23:03 2 MG Nitroglycerin 0.4 mg Q5MINP PRN SL 10/16/24 20:15 Morphine Sulfate 2 mg Q30M PRN IV 10/16/24 20:15 Ketorolac Tromethamine 15 mg Q8HP PRN IV 10/17/24 01:45 10/22/24 01:44 UNV objective GEN: NAD ABD: less TTP laboratory and microbiology Laboratory Tests 10/17/24 08:58 Test 10/17/24 08:58 Range/Units Serum Glucose 106 74-106 mg/dL Assessment/Plan A: 1. Sigmoid diverticulitis with small perforation but clinically stable on abx P: 1. cont curr tx. Plan discussed with: Patient KALPANA LOWE MD Oct 17, 2024 15:10
[2024-10-17] MEDS: levoFLOXacin 500MG 100 ML IV SCH (17:53)
[2024-10-17] MEDS ORDERED: levoFLOXacin 500MG 100 ML IV ONE (19:00)
[2024-10-18] VITALS (9 sets, daily range): BP systolic 109–138; BP diastolic 65–83; PULSE 53–74; RESP 17–20; TEMP 97.9–98.3; O2SAT 96–100
[2024-10-18 07:17] LABS: Basophils # (auto) 0.1 10 ^3/uL (0-0.2); Basophils % (auto) 0.5 % (0.0-2.0); Eosinophils # (auto) 0.1 10 ^3/uL (0-0.8); Eosinophils % (auto) 1.1 % (0.0-7.0); Hematocrit 44.3 % (41.0-53.0); Hemoglobin 15.3 g/dL (13.5-17.5); Lymphocytes # (auto) 2.3 10 ^3/uL (0.4-5.4); Mean Corpuscular Hemoglobin 30.5 pg (28.0-32.0); Mean Corpuscular Hgb Conc. 34.6 g/dL (32.0-36.0); Mean Corpuscular Volume 88.1 fL (80.0-100.0); Monocytes # (auto) 1.2 10 ^3/uL (0-1.3); Monocytes % (auto) 10.5 % (0.0-12.0); Neutrophils # (auto) 7.7 10 ^3/uL (1.6-8.6); Neutrophils % (auto) 67.9 % (37.0-80.0); Nucleated Red Blood Cells % 0.1 %; Platelet Count (auto) 238 10^3/uL (140-450); Red Blood Cells 5.03 10^6/uL (4.5-5.90); Red Cell Distribution Width 13.3 % (11.8-14.3); White Blood Cell 11.4 10^3/uL (4.4-10.8)
[2024-10-18 07:33] LABS: Anion Gap 11 (5-15); Calcium 9.7 mg/dL (8.7-10.4); Carbon Dioxide 24 mmol/L (20-31); Chloride 106 mmol/L (98-107); Potassium 3.7 mmol/L (3.5-5.1); Sodium 141 mmol/L (136-145)
[2024-10-18 07:40] LABS: BUN/Creatinine Ratio 12.6 (10.0-20.0); Blood Urea Nitrogen 12 mg/dL (9-23); Glucose 90 mg/dL (74-106)
[2024-10-18] MEDS: levoFLOXacin 500MG 100 ML IV SCH (09:33)
--- NOTE | 2024-10-18 09:59 | DVHPN2 ---
Progress Note - Dictate Date Seen: Oct 18, 2024 Medical Necessity Reason Pt with a Central, PICC or Fol: No Subjective E: no major events o/n. feels better. no complaints. vital signs Vital Sign Date Time Temp Pulse Resp B/P (MAP) Pulse Ox O2 Delivery O2 Flow Rate FiO2 10/18/24 05:00 98.3 53 20 120/71 (87) 100 98.3 10/17/24 20:00 Room Air* 0 21 Total Intake and Output 10/17/24 10/17/24 10/18/24 15:00 23:00 07:00 Intake Total 1200 ml 0 ml Output Total 50 ml Balance 1200 ml -50 ml medications Current Medications Medications Dose Ordered Sig/Marco Route Start Time Stop Time Status Last Admin Dose Admin Metronidazole 100 ml @ 100 mls/hr Q8HR IV 10/17/24 06:00 10/18/24 05:45 100 MLS/HR Sodium Chloride 1,000 ml @ 60 mls/hr [id number] IV 10/16/24 20:15 10/18/24 05:45 60 MLS/HR Acetaminophen/ Hydrocodone Bitart 1 tab Q4HP PRN PO 10/16/24 20:15 Ondansetron HCl 4 mg Q4HP PRN IV 10/16/24 20:15 Docusate Sodium 100 mg BIDPRN PRN PO 10/16/24 20:15 Acetaminophen 650 mg Q6HP PRN PO 10/16/24 20:15 Morphine Sulfate 2 mg Q4HPRN PRN IV 10/16/24 20:15 10/16/24 23:03 2 MG Nitroglycerin 0.4 mg Q5MINP PRN SL 10/16/24 20:15 Morphine Sulfate 2 mg Q30M PRN IV 10/16/24 20:15 Ketorolac Tromethamine 15 mg Q8HP PRN IV 10/17/24 01:45 10/22/24 01:44 UNV Levofloxacin/ Dextrose 100 ml @ 100 mls/hr DAILY IV 10/18/24 10:00 10/18/24 09:33 100 MLS/HR objective GEN: NAD ABD: less TTP laboratory and microbiology Laboratory Tests 10/18/24 06:44 Test 10/18/24 06:44 Range/Units Serum Glucose 90 74-106 mg/dL Assessment/Plan A: 1. Sigmoid diverticulitis with small perforation but clinically improving. P: 1. start clear liquid diet. if jose, then poss DC home tomorrow. Plan discussed with: Patient KALPANA LOWE MD Oct 18, 2024 09:59
--- NOTE | 2024-10-18 11:37 | DVHPN2 ---
Subjective No nausea/vomiting with decreasing abdominal pain; wants to drink fluids Reviewed: Care Plan, H&P, Labs, Medications, Previous Orders, Radiology, Other (Consultation) Changes from previous H/P or p: Changes Objective Vitals Vital Signs Date Time Temp Pulse Resp B/P (MAP) Pulse Ox O2 Delivery O2 Flow Rate FiO2 10/18/24 05:00 98.3 53 20 120/71 (87) 100 98.3 10/17/24 20:00 Room Air* 0 21 Intake/Output Intake and Output 10/18/24 07:00 Intake Total 1200 ml Output Total 50 ml Balance 1150 ml Intake Oral 600 ml IV Total 600 ml Output Urine Total 50 ml # Voids 6 General Appearance: Alert, Oriented X3, Cooperative, No acute distress HEENT: Atraumatic Lungs: Clear to auscultation, Normal air movement Cardiovascular: Regular rate, Normal S1, Normal S2 Abdomen: Normal bowel sounds, Soft, Other (Decreasing diffuse tenderness) Extremities: No edema Neuro: Normal speech, Cranial nerves 3-12 NL Psych/Mental Status: Mental status NL, Mood NL Medications Current Medications Medications Dose Ordered Sig/Marco Route Start Time Stop Time Status Last Admin Dose Admin Metronidazole 100 ml @ 100 mls/hr Q8HR IV 10/17/24 06:00 10/18/24 05:45 100 MLS/HR Sodium Chloride 1,000 ml @ 60 mls/hr [id number] IV 10/16/24 20:15 10/18/24 05:45 60 MLS/HR Acetaminophen/ Hydrocodone Bitart 1 tab Q4HP PRN PO 10/16/24 20:15 Ondansetron HCl 4 mg Q4HP PRN IV 10/16/24 20:15 Docusate Sodium 100 mg BIDPRN PRN PO 10/16/24 20:15 Acetaminophen 650 mg Q6HP PRN PO 10/16/24 20:15 Morphine Sulfate 2 mg Q4HPRN PRN IV 10/16/24 20:15 10/16/24 23:03 2 MG Nitroglycerin 0.4 mg Q5MINP PRN SL 10/16/24 20:15 Morphine Sulfate 2 mg Q30M PRN IV 10/16/24 20:15 Ketorolac Tromethamine 15 mg Q8HP PRN IV 10/17/24 01:45 10/22/24 01:44 UNV Levofloxacin/ Dextrose 100 ml @ 100 mls/hr DAILY IV 10/18/24 10:00 10/18/24 09:33 100 MLS/HR Laboratory Results Laboratory Tests 10/18/24 06:44 Chemistry Test 10/18/24 06:44 Calcium Level 9.7 mg/dL (8.7-10.4) Urinalysis Test 10/16/24 15:42 Urine Color Light-orange (Yellow) Urine Clarity Ex.turbid (Clear) Urine pH 6.0 (5.0-9.0) Urine Specific [place] 1.030 (1.001-1.035) Urine Protein Trace (Negative) H Urine Ketones Negative (Negative) Urine Blood 2+ /uL (Negative) H Urine Nitrite Negative (Negative) Urine Bilirubin Negative (Negative) Urine Urobilinogen Normal mg/dL (Negative) Urine Leukocyte Esterase Negative /uL (Negative) Urine RBC 3 /hpf (0 - 3) Urine Microscopic WBC /HPF (0-3) Urine Squamous Epithelial Cells Few /hpf (<5) Urine Bacteria Few /hpf (None Seen) H Urine Mucus Few (None Seen) Urine Glucose Normal mg/dL (Normal) Labs and/or images reviewed: Labs reviewed by me, Image(s) reviewed by me Assessment/Plan Assessment/Plan A 48-year-old male patient; with past medical history of marijuana use disorder; who presented to the emergency department with acute abdomen. #Acute abdomen with nausea/vomiting/abdominal pain secondary to sigmoid diverticulitis with perforation; no surgical intervention at this time; reviewed imaging studies; will start clear liquid diet as the patient is ready to drink fluids; continue IV fluids and IV antibiotics; continue pain management as indicated; surgery is following; continue monitoring #Sepsis with leukocytosis due to sigmoid diverticulitis with perforation; details and management as above; continue monitoring #Suspected DARSHAN in the setting of sepsis; most likely vasomotor nephropathy; continue IV fluids; avoid nephrotoxic agents; continue monitoring #Elevated total bilirubin in the setting of sepsis with hepatomegaly and hepatic steatosis; avoid hepatotoxic agents; continue monitoring #Marijuana use disorder; reviewed drug screen; counseled on marijuana use cessation; continue monitoring #Obesity; counseled the patient importance of adopting healthy lifestyle with diet and exercise in order to lose weight; continue monitoring Late Entry. This medical document was created using an electronic medical record system with computerized dictation system. Although this document has been carefully reviewed, there might still be some phonetic and typographical errors. These areas are purely typographical due to imperfections of the software programs, and do not reflect any compromise in the patient's medical care. Plan discussed with: Patient, Spouse, Other (Nurse) My Orders Orders - EL CARDONA MD Procedure Category Date Status Time Levofloxacin 500mg PHA 10/18/24 In Process (Levaquin 500mg/ 100m 10:00 Transfer Orders XFER 10/18/24 Transmitted 04:49 Date of Service: Oct 18, 2024 Billing Provider: EL CARDONA MD Common Visit Codes: [id number] INP/OBS CARE(HIGH) EL CARDONA MD Oct 18, 2024 11:37
[2024-10-19] VITALS (8 sets, daily range): BP systolic 116–145; BP diastolic 66–81; PULSE 47–60; RESP 15–17; TEMP 97.6–98.7; O2SAT 96–99
[2024-10-19 06:08] LABS: Basophils # (auto) 0 10 ^3/uL (0-0.2); Basophils % (auto) 0.4 % (0.0-2.0); Eosinophils # (auto) 0.2 10 ^3/uL (0-0.8); Eosinophils % (auto) 1.6 % (0.0-7.0); Hematocrit 44.2 % (41.0-53.0); Hemoglobin 15.4 g/dL (13.5-17.5); Lymphocytes # (auto) 2.4 10 ^3/uL (0.4-5.4); Lymphocytes % (auto) 21.7 % (10.0-50.0); Mean Corpuscular Hgb Conc. 34.8 g/dL (32.0-36.0); Monocytes # (auto) 1.1 10 ^3/uL (0-1.3); Monocytes % (auto) 9.9 % (0.0-12.0); Neutrophils # (auto) 7.5 10 ^3/uL (1.6-8.6); Neutrophils % (auto) 66.4 % (37.0-80.0); Platelet Count (auto) 252 10^3/uL (140-450); Red Blood Cells 4.96 10^6/uL (4.5-5.90); Red Cell Distribution Width 13.2 % (11.8-14.3); White Blood Cell 11.2 10^3/uL (4.4-10.8)
[2024-10-19 06:13] LABS: Sodium 141 mmol/L (136-145)
[2024-10-19 06:14] LABS: Anion Gap 13 (5-15)
[2024-10-19 06:19] LABS: BUN/Creatinine Ratio 12.9 (10.0-20.0); Blood Urea Nitrogen 11 mg/dL (9-23)
[2024-10-19 06:40] LABS: Calcium 8.4 mg/dL (8.7-10.4); Carbon Dioxide 19 mmol/L (20-31); Chloride 109 mmol/L (98-107); Glucose 73 mg/dL (74-106); Potassium 3.4 mmol/L (3.5-5.1)
--- NOTE | 2024-10-19 09:08 | DVHPN2 ---
Subjective Date Seen: Oct 19, 2024 Post op day Post op day: 0 General: Normal HNT: Normal Cardiovascular: Normal Respiratory: Normal Gastrointestinal: Abdominal Pain, Diarrhea, Flatulence Genitourinary: Normal Musculoskeletal: Normal Neurological: Normal Objective Vitals Vital Sign Date Time Temp Pulse Resp B/P (MAP) Pulse Ox O2 Delivery O2 Flow Rate FiO2 10/19/24 05:00 98.0 53 16 120/66 (84) 97 98.0 10/18/24 20:00 Room Air* 0 21 Total Intake and Output 10/18/24 10/18/24 10/19/24 15:00 23:00 07:00 Intake Total 100 ml 750 ml 100 ml Balance 100 ml 750 ml 100 ml Medications Current Medications Medications Dose Ordered Sig/Marco Route Start Time Stop Time Status Last Admin Dose Admin Metronidazole 100 ml @ 100 mls/hr Q8HR IV 10/17/24 06:00 10/19/24 05:28 100 MLS/HR Sodium Chloride 1,000 ml @ 60 mls/hr [id number] IV 10/16/24 20:15 10/18/24 22:56 60 MLS/HR Acetaminophen/ Hydrocodone Bitart 1 tab Q4HP PRN PO 10/16/24 20:15 Ondansetron HCl 4 mg Q4HP PRN IV 10/16/24 20:15 Docusate Sodium 100 mg BIDPRN PRN PO 10/16/24 20:15 Acetaminophen 650 mg Q6HP PRN PO 10/16/24 20:15 Morphine Sulfate 2 mg Q4HPRN PRN IV 10/16/24 20:15 10/16/24 23:03 2 MG Nitroglycerin 0.4 mg Q5MINP PRN SL 10/16/24 20:15 Morphine Sulfate 2 mg Q30M PRN IV 10/16/24 20:15 Ketorolac Tromethamine 15 mg Q8HP PRN IV 10/17/24 01:45 10/22/24 01:44 UNV Levofloxacin/ Dextrose 100 ml @ 100 mls/hr DAILY IV 10/18/24 10:00 10/18/24 09:33 100 MLS/HR General: Normal, Well developed, Well nourished Head/Eyes: Normal ENT: Normal Neck: Normal Lungs: Normal Cardiovascular: Normal Abdominal: Other (lower abdominal tender) Musculoskeletal: Normal Extremities: Normal Skin: Normal Neurological: Normal Labs and Microbiology Laboratory Tests 10/19/24 05:49 Test 10/19/24 05:49 Range/Units Serum Glucose 73 L 74-106 mg/dL Ass/Plan Labs and/or images reviewed: Labs reviewed by me, Image(s) reviewed by me Assessment/Plan patient admitted mid sigmoid diverticulosis complicated with perforation patient complaint of lower abdominal pain, cramping, diarrhea and passing gas patient lower abdomen minimally tender Plan: NPO continue IV hydration and IV antibiotics Repeat CT tomorrow if pain does not improve Discussed with DR Lawrence Prognosis: Good Plan discussed with patient , Dr. Lawrence Visit Coding Surgery Date of Service if different f: Oct 19, 2024 Billing Provider: PINKY LAWRENCE MD Surgery Visit Codes: [id number] INP/OBS CARE(HIGH) HANNA ALEXANDER DNP Oct 19, 2024 09:08
--- NOTE | 2024-10-19 10:06 | DVHPN2 ---
Subjective Did not tolerate clear liquid diet; still no nausea/vomiting with decreasing abdominal pain Reviewed: Care Plan, H&P, Labs, Medications, Previous Orders, Radiology, Other (Consultation) Changes from previous H/P or p: Changes Objective Vitals Vital Signs Date Time Temp Pulse Resp B/P (MAP) Pulse Ox O2 Delivery O2 Flow Rate FiO2 10/19/24 09:00 97.6 60 16 128/73 (91) 96 97.6 10/18/24 20:00 Room Air* 0 21 Intake/Output Intake and Output 10/19/24 07:00 Intake Total 950 ml Balance 950 ml Intake Oral 150 ml IV Total 800 ml # Voids 3 # Bowel Movements 6 General Appearance: Alert, Oriented X3, Cooperative, No acute distress HEENT: Atraumatic Lungs: Clear to auscultation, Normal air movement Cardiovascular: Regular rate, Normal S1, Normal S2 Abdomen: Normal bowel sounds, Soft, Other (Decreasing diffuse tenderness) Extremities: No edema Neuro: Normal speech, Cranial nerves 3-12 NL Psych/Mental Status: Mental status NL, Mood NL Medications Current Medications Medications Dose Ordered Sig/Marco Route Start Time Stop Time Status Last Admin Dose Admin Metronidazole 100 ml @ 100 mls/hr Q8HR IV 10/17/24 06:00 10/19/24 05:28 100 MLS/HR Sodium Chloride 1,000 ml @ 60 mls/hr [id number] IV 10/16/24 20:15 10/18/24 22:56 60 MLS/HR Acetaminophen/ Hydrocodone Bitart 1 tab Q4HP PRN PO 10/16/24 20:15 Ondansetron HCl 4 mg Q4HP PRN IV 10/16/24 20:15 Docusate Sodium 100 mg BIDPRN PRN PO 10/16/24 20:15 Acetaminophen 650 mg Q6HP PRN PO 10/16/24 20:15 Morphine Sulfate 2 mg Q4HPRN PRN IV 10/16/24 20:15 10/16/24 23:03 2 MG Nitroglycerin 0.4 mg Q5MINP PRN SL 10/16/24 20:15 Morphine Sulfate 2 mg Q30M PRN IV 10/16/24 20:15 Ketorolac Tromethamine 15 mg Q8HP PRN IV 10/17/24 01:45 10/22/24 01:44 UNV Levofloxacin/ Dextrose 100 ml @ 100 mls/hr DAILY IV 10/18/24 10:00 10/18/24 09:33 100 MLS/HR Laboratory Results Laboratory Tests 10/19/24 05:49 Chemistry Test 10/19/24 05:49 Calcium Level 8.4 mg/dL (8.7-10.4) L Urinalysis Test 10/16/24 15:42 Urine Color Light-orange (Yellow) Urine Clarity Ex.turbid (Clear) Urine pH 6.0 (5.0-9.0) Urine Specific [place] 1.030 (1.001-1.035) Urine Protein Trace (Negative) H Urine Ketones Negative (Negative) Urine Blood 2+ /uL (Negative) H Urine Nitrite Negative (Negative) Urine Bilirubin Negative (Negative) Urine Urobilinogen Normal mg/dL (Negative) Urine Leukocyte Esterase Negative /uL (Negative) Urine RBC 3 /hpf (0 - 3) Urine Microscopic WBC /HPF (0-3) Urine Squamous Epithelial Cells Few /hpf (<5) Urine Bacteria Few /hpf (None Seen) H Urine Mucus Few (None Seen) Urine Glucose Normal mg/dL (Normal) Labs and/or images reviewed: Labs reviewed by me, Image(s) reviewed by me Assessment/Plan Assessment/Plan A 48-year-old male patient; with past medical history of marijuana use disorder; who presented to the emergency department with acute abdomen. #Acute abdomen with nausea/vomiting/abdominal pain secondary to sigmoid diverticulitis with perforation; reviewed imaging studies; did not tolerate clear liquid diet so will keep NPO as per surgical recommendation; continue IV fluids and IV antibiotics; continue pain management as indicated; surgery is following; continue monitoring #Sepsis with leukocytosis due to sigmoid diverticulitis with perforation; details and management as above; continue monitoring #Suspected DARSHAN in the setting of sepsis; most likely vasomotor nephropathy; continue IV fluids; avoid nephrotoxic agents; continue monitoring #Elevated total bilirubin in the setting of sepsis with hepatomegaly and hepatic steatosis; avoid hepatotoxic agents; continue monitoring #Hypokalemia due to decreased oral intake; replace electrolytes as needed; ordered morning magnesium level; continue monitoring #Marijuana use disorder; reviewed drug screen; counseled on marijuana use cessation; continue monitoring #Obesity; counseled the patient importance of adopting healthy lifestyle with diet and exercise in order to lose weight; continue monitoring Late Entry. This medical document was created using an electronic medical record system with computerized dictation system. Although this document has been carefully reviewed, there might still be some phonetic and typographical errors. These areas are purely typographical due to imperfections of the software programs, and do not reflect any compromise in the patient's medical care. Plan discussed with: Patient, Other (Nurse) Date of Service: Oct 19, 2024 Billing Provider: EL CARDONA MD Common Visit Codes: [id number] INP/OBS CARE(HIGH) EL CARDONA MD Oct 19, 2024 10:06
[2024-10-19] MEDS: POTASSIUM CHLORIDE 40 MEQ, LIDOCAINE 1% (LOCAL ANESTH.) 4 ML in SODIUM CHL 0.9% 250 ML IV ONE (10:15)
[2024-10-19] MEDS: ONDANSETRON HCL 4 MG/2 ML VIAL IV PRN (23:42)
[2024-10-20] VITALS (8 sets, daily range): BP systolic 108–136; BP diastolic 62–81; PULSE 48–93; RESP 15–20; TEMP 97.5–98.8; O2SAT 96–98
[2024-10-20 08:04] LABS: Basophils # (auto) 0.1 10 ^3/uL (0-0.2); Basophils % (auto) 0.5 % (0.0-2.0); Eosinophils # (auto) 0.2 10 ^3/uL (0-0.8); Eosinophils % (auto) 1.5 % (0.0-7.0); Hematocrit 46.9 % (41.0-53.0); Hemoglobin 16.5 g/dL (13.5-17.5); Lymphocytes # (auto) 2.4 10 ^3/uL (0.4-5.4); Lymphocytes % (auto) 23.2 % (10.0-50.0); Mean Corpuscular Hgb Conc. 35.1 g/dL (32.0-36.0); Mean Corpuscular Volume 85.5 fL (80.0-100.0); Neutrophils # (auto) 6.7 10 ^3/uL (1.6-8.6); Neutrophils % (auto) 64.8 % (37.0-80.0); Nucleated Red Blood Cells % 0.3 %; Platelet Count (auto) 283 10^3/uL (140-450); Red Blood Cells 5.48 10^6/uL (4.5-5.90); Red Cell Distribution Width 13.3 % (11.8-14.3); White Blood Cell 10.3 10^3/uL (4.4-10.8)
[2024-10-20 08:09] LABS: Alanine Aminotransferase 28 U/L (7-40); Albumin 4.1 g/dL (3.2-4.8); Alkaline Phosphatase 60 U/L (46-116); Anion Gap 13 (5-15); Aspartate Aminotransferase 25 U/L (13-40); BUN/Creatinine Ratio 10.8 (10.0-20.0); Bilirubin, Total 0.7 mg/dL (0.2-1.0); Blood Urea Nitrogen 10 mg/dL (9-23); Calcium 9.8 mg/dL (8.7-10.4); Carbon Dioxide 20 mmol/L (20-31); Glucose 77 mg/dL (74-106); Potassium 4.2 mmol/L (3.5-5.1); Sodium 140 mmol/L (136-145)
[2024-10-20 08:10] LABS: Chloride 107 mmol/L (98-107)
--- NOTE | 2024-10-20 11:54 | DVHPN2 ---
Subjective Stating that he would like to try again clear liquid diet as he is with almost no abdominal pain; no nausea/vomiting reported Reviewed: Care Plan, H&P, Labs, Medications, Previous Orders, Radiology, Other (Consultation) Changes from previous H/P or p: Changes Objective Vitals Vital Signs Date Time Temp Pulse Resp B/P (MAP) Pulse Ox O2 Delivery O2 Flow Rate FiO2 10/20/24 09:00 98.8 51 20 123/71 (88) 98 98.8 10/20/24 08:00 Room Air* 0 21 Intake/Output Intake and Output 10/20/24 07:00 Intake Total 1680 ml Balance 1680 ml Intake Oral 760 ml IV Total 920 ml # Voids 8 # Bowel Movements 8 General Appearance: Alert, Oriented X3, Cooperative, No acute distress HEENT: Atraumatic Lungs: Clear to auscultation, Normal air movement Cardiovascular: Regular rate, Normal S1, Normal S2 Abdomen: Normal bowel sounds, Soft, Other (Decreasing diffuse tenderness) Extremities: No edema Neuro: Normal speech, Cranial nerves 3-12 NL Psych/Mental Status: Mental status NL, Mood NL Medications Current Medications Medications Dose Ordered Sig/Marco Route Start Time Stop Time Status Last Admin Dose Admin Metronidazole 100 ml @ 100 mls/hr Q8HR IV 10/17/24 06:00 10/20/24 05:26 100 MLS/HR Sodium Chloride 1,000 ml @ 60 mls/hr [id number] IV 10/16/24 20:15 10/20/24 09:15 60 MLS/HR Acetaminophen/ Hydrocodone Bitart 1 tab Q4HP PRN PO 10/16/24 20:15 Ondansetron HCl 4 mg Q4HP PRN IV 10/16/24 20:15 10/19/24 23:42 4 MG Docusate Sodium 100 mg BIDPRN PRN PO 10/16/24 20:15 Acetaminophen 650 mg Q6HP PRN PO 10/16/24 20:15 Morphine Sulfate 2 mg Q4HPRN PRN IV 10/16/24 20:15 10/19/24 23:42 2 MG Nitroglycerin 0.4 mg Q5MINP PRN SL 10/16/24 20:15 Morphine Sulfate 2 mg Q30M PRN IV 10/16/24 20:15 Ketorolac Tromethamine 15 mg Q8HP PRN IV 10/17/24 01:45 10/22/24 01:44 UNV Levofloxacin/ Dextrose 100 ml @ 100 mls/hr DAILY IV 10/18/24 10:00 10/20/24 09:14 100 MLS/HR Laboratory Results Laboratory Tests 10/20/24 07:26 Chemistry Test 10/20/24 07:26 Albumin 4.1 g/dL (3.2-4.8) Calcium Level 9.8 mg/dL (8.7-10.4) Magnesium Level 2.0 mg/dL (1.6-2.6) Total Protein 7.0 g/dL (5.7-8.2) LFT Test 10/20/24 07:26 Alanine Aminotransferase (ALT) 28 U/L (7-40) Alkaline Phosphatase 60 U/L (46-116) Aspartate Amino Transferase (AST) 25 U/L (13-40) Total Bilirubin 0.7 mg/dL (0.2-1.0) Urinalysis Test 10/16/24 15:42 Urine Color Light-orange (Yellow) Urine Clarity Ex.turbid (Clear) Urine pH 6.0 (5.0-9.0) Urine Specific [place] 1.030 (1.001-1.035) Urine Protein Trace (Negative) H Urine Ketones Negative (Negative) Urine Blood 2+ /uL (Negative) H Urine Nitrite Negative (Negative) Urine Bilirubin Negative (Negative) Urine Urobilinogen Normal mg/dL (Negative) Urine Leukocyte Esterase Negative /uL (Negative) Urine RBC 3 /hpf (0 - 3) Urine Microscopic WBC /HPF (0-3) Urine Squamous Epithelial Cells Few /hpf (<5) Urine Bacteria Few /hpf (None Seen) H Urine Mucus Few (None Seen) Urine Glucose Normal mg/dL (Normal) Labs and/or images reviewed: Labs reviewed by me, Image(s) reviewed by me Assessment/Plan Assessment/Plan A 48-year-old male patient; with past medical history of marijuana use disorder; who presented to the emergency department with acute abdomen. #Acute abdomen with nausea/vomiting/abdominal pain secondary to sigmoid diverticulitis with perforation; reviewed imaging studies; to restart clear liquid diet as per surgical recommendation; continue IV fluids and IV antibiotics; continue pain management as indicated; surgery is following; continue monitoring #Sepsis with leukocytosis due to sigmoid diverticulitis with perforation; details and management as above; white blood cells count within normal limits this morning; continue monitoring #DARSHAN in the setting of sepsis; resolved; most likely vasomotor nephropathy; continue IV fluids; avoid nephrotoxic agents; continue monitoring #Elevated total bilirubin in the setting of sepsis with hepatomegaly and hepatic steatosis; avoid hepatotoxic agents; continue monitoring #Hypokalemia due to decreased oral intake; corrected with replacement; normal morning magnesium level; continue monitoring #Marijuana use disorder; reviewed drug screen; counseled on marijuana use cessation; continue monitoring #Obesity; counseled the patient importance of adopting healthy lifestyle with diet and exercise in order to lose weight; continue monitoring This medical document was created using an electronic medical record system with computerized dictation system. Although this document has been carefully reviewed, there might still be some phonetic and typographical errors. These areas are purely typographical due to imperfections of the software programs, and do not reflect any compromise in the patient's medical care. Plan discussed with: Patient, Other (Nurse) My Orders Orders - EL CARDONA MD Procedure Category Date Status Time Clear Liq Diet DIET 10/20/24 Transmitted Lunch Date of Service: Oct 20, 2024 Billing Provider: EL CARDONA MD Common Visit Codes: [id number] INP/OBS CARE(HIGH) EL CARDONA MD Oct 20, 2024 11:54
[2024-10-21] VITALS (7 sets, daily range): BP systolic 104–129; BP diastolic 62–88; PULSE 49–86; RESP 16–20; TEMP 97.4–98.4; O2SAT 96–98
[2024-10-21 06:51] LABS: Anion Gap 15 (5-15); Sodium 142 mmol/L (136-145)
[2024-10-21 06:57] LABS: BUN/Creatinine Ratio 9.5 (10.0-20.0)
[2024-10-21 06:59] LABS: Blood Urea Nitrogen 9 mg/dL (9-23); Calcium 7.7 mg/dL (8.7-10.4); Carbon Dioxide 18 mmol/L (20-31); Chloride 109 mmol/L (98-107); Glucose 67 mg/dL (74-106); Potassium 3.4 mmol/L (3.5-5.1)
[2024-10-21 07:05] LABS: Basophils # (auto) 0.1 10 ^3/uL (0-0.2); Basophils % (auto) 0.5 % (0.0-2.0); Eosinophils # (auto) 0.1 10 ^3/uL (0-0.8); Eosinophils % (auto) 1.3 % (0.0-7.0); Hematocrit 45.4 % (41.0-53.0); Lymphocytes # (auto) 2.4 10 ^3/uL (0.4-5.4); Lymphocytes % (auto) 23.1 % (10.0-50.0); Mean Corpuscular Hemoglobin 30.7 pg (28.0-32.0); Mean Corpuscular Hgb Conc. 35.3 g/dL (32.0-36.0); Mean Corpuscular Volume 87.2 fL (80.0-100.0); Monocytes # (auto) 1.1 10 ^3/uL (0-1.3); Monocytes % (auto) 10.5 % (0.0-12.0); Neutrophils # (auto) 6.8 10 ^3/uL (1.6-8.6); Neutrophils % (auto) 64.6 % (37.0-80.0); Nucleated Red Blood Cells % 0.1 %; Platelet Count (auto) 298 10^3/uL (140-450); Red Cell Distribution Width 13.4 % (11.8-14.3); White Blood Cell 10.5 10^3/uL (4.4-10.8)
--- NOTE | 2024-10-21 10:25 | DVHPN2 ---
Subjective Abdominal pain returned after starting clear liquid diet; no nausea/vomiting reported; last bowel movement was pink/red Reviewed: Care Plan, H&P, Labs, Medications, Previous Orders, Radiology, Other (Consultation) Changes from previous H/P or p: Changes Objective Vitals Vital Signs Date Time Temp Pulse Resp B/P (MAP) Pulse Ox O2 Delivery O2 Flow Rate FiO2 10/21/24 09:00 98.3 55 18 120/70 (87) 97 98.3 10/20/24 19:58 Room Air* 0 21 Intake/Output Intake and Output 10/21/24 07:00 Intake Total 600 ml Balance 600 ml Intake Oral 200 ml IV Total 400 ml # Voids 3 General Appearance: Alert, Oriented X3, Cooperative, No acute distress HEENT: Atraumatic Lungs: Clear to auscultation, Normal air movement Cardiovascular: Regular rate, Normal S1, Normal S2 Abdomen: Normal bowel sounds, Soft, Other (Decreasing diffuse tenderness) Extremities: No edema Neuro: Normal speech, Cranial nerves 3-12 NL Psych/Mental Status: Mental status NL, Mood NL Medications Current Medications Medications Dose Ordered Sig/Marco Route Start Time Stop Time Status Last Admin Dose Admin Metronidazole 100 ml @ 100 mls/hr Q8HR IV 10/17/24 06:00 10/21/24 05:04 100 MLS/HR Sodium Chloride 1,000 ml @ 60 mls/hr [id number] IV 10/16/24 20:15 10/20/24 21:11 60 MLS/HR Acetaminophen/ Hydrocodone Bitart 1 tab Q4HP PRN PO 10/16/24 20:15 Ondansetron HCl 4 mg Q4HP PRN IV 10/16/24 20:15 10/20/24 14:00 4 MG Docusate Sodium 100 mg BIDPRN PRN PO 10/16/24 20:15 Acetaminophen 650 mg Q6HP PRN PO 10/16/24 20:15 Morphine Sulfate 2 mg Q4HPRN PRN IV 10/16/24 20:15 10/19/24 23:42 2 MG Nitroglycerin 0.4 mg Q5MINP PRN SL 10/16/24 20:15 Morphine Sulfate 2 mg Q30M PRN IV 10/16/24 20:15 Ketorolac Tromethamine 15 mg Q8HP PRN IV 10/17/24 01:45 10/22/24 01:44 UNV Levofloxacin/ Dextrose 100 ml @ 100 mls/hr DAILY IV 10/18/24 10:00 10/21/24 10:03 100 MLS/HR Laboratory Results Laboratory Tests 10/21/24 05:51 Chemistry Test 10/21/24 05:51 Calcium Level 7.7 mg/dL (8.7-10.4) L Urinalysis Test 10/16/24 15:42 Urine Color Light-orange (Yellow) Urine Clarity Ex.turbid (Clear) Urine pH 6.0 (5.0-9.0) Urine Specific [place] 1.030 (1.001-1.035) Urine Protein Trace (Negative) H Urine Ketones Negative (Negative) Urine Blood 2+ /uL (Negative) H Urine Nitrite Negative (Negative) Urine Bilirubin Negative (Negative) Urine Urobilinogen Normal mg/dL (Negative) Urine Leukocyte Esterase Negative /uL (Negative) Urine RBC 3 /hpf (0 - 3) Urine Microscopic WBC /HPF (0-3) Urine Squamous Epithelial Cells Few /hpf (<5) Urine Bacteria Few /hpf (None Seen) H Urine Mucus Few (None Seen) Urine Glucose Normal mg/dL (Normal) Labs and/or images reviewed: Labs reviewed by me, Image(s) reviewed by me Assessment/Plan Assessment/Plan A 48-year-old male patient; with past medical history of marijuana use disorder; who presented to the emergency department with acute abdomen. #Acute abdomen with nausea/vomiting/abdominal pain secondary to sigmoid diverticulitis with perforation; reviewed imaging studies; as per surgery to keep one more day as abdominal pain worsened after starting clear/full liquid diet; to advance diet as tolerated; continue IV fluids and IV antibiotics; continue pain management as indicated; surgery is following; continue monitoring #Shelly/Red bowel movement; ordered fecal occult blood test that came back negative; no drop in hemoglobin; continue monitoring #Sepsis with leukocytosis due to sigmoid diverticulitis with perforation; details and management as above; leukocytosis resolved; continue monitoring #DARSHAN in the setting of sepsis; resolved; most likely vasomotor nephropathy; continue IV fluids; avoid nephrotoxic agents; renal function normalized; continue monitoring #Elevated total bilirubin in the setting of sepsis with hepatomegaly and hepatic steatosis; avoid hepatotoxic agents; resolved; continue monitoring #Hypokalemia due to decreased oral intake; to replace electrolytes as indicated; normal magnesium level; continue monitoring #Marijuana use disorder; reviewed drug screen; counseled on marijuana use cessation; continue monitoring #Obesity; counseled the patient importance of adopting healthy lifestyle with diet and exercise in order to lose weight; continue monitoring Late entry. This medical document was created using an electronic medical record system with computerized dictation system. Although this document has been carefully reviewed, there might still be some phonetic and typographical errors. These areas are purely typographical due to imperfections of the software programs, and do not reflect any compromise in the patient's medical care. Plan discussed with: Patient, Spouse, Other (Nurse) My Orders Orders - EL CARDONA MD Procedure Category Date Status Time Soft Diet DIET 10/21/24 Transmitted Breakfast Date of Service: Oct 21, 2024 Billing Provider: EL CARDONA MD Common Visit Codes: [id number] INP/OBS CARE(HIGH) EL CARDONA MD Oct 21, 2024 10:25
[2024-10-21] MEDS ORDERED: METR-344 PO (10:28)
[2024-10-21] MEDS ORDERED: LEVO750T40 PO (10:28)
--- NOTE | 2024-10-21 12:44 | DVHPN2 ---
Subjective Date Seen: Oct 21, 2024 Post op day Post op day: 0 Patient reports: No new complaints, Feels better Nursing reports: No new complaints General: Normal HNT: Normal Cardiovascular: Normal Respiratory: Normal Gastrointestinal: Normal (no more pain), Flatulence Genitourinary: Normal Musculoskeletal: Normal Neurological: Normal Objective Vitals Vital Sign Date Time Temp Pulse Resp B/P (MAP) Pulse Ox O2 Delivery O2 Flow Rate FiO2 10/21/24 09:00 98.3 55 18 120/70 (87) 97 98.3 10/21/24 08:00 Room Air* 0 21 Total Intake and Output 10/20/24 10/20/24 10/21/24 15:00 23:00 07:00 Intake Total 200 ml 100 ml 300 ml Balance 200 ml 100 ml 300 ml Medications Current Medications Medications Dose Ordered Sig/Marco Route Start Time Stop Time Status Last Admin Dose Admin Metronidazole 100 ml @ 100 mls/hr Q8HR IV 10/17/24 06:00 10/21/24 05:04 100 MLS/HR Sodium Chloride 1,000 ml @ 60 mls/hr [id number] IV 10/16/24 20:15 10/20/24 21:11 60 MLS/HR Acetaminophen/ Hydrocodone Bitart 1 tab Q4HP PRN PO 10/16/24 20:15 Ondansetron HCl 4 mg Q4HP PRN IV 10/16/24 20:15 10/20/24 14:00 4 MG Docusate Sodium 100 mg BIDPRN PRN PO 10/16/24 20:15 Acetaminophen 650 mg Q6HP PRN PO 10/16/24 20:15 Morphine Sulfate 2 mg Q4HPRN PRN IV 10/16/24 20:15 10/19/24 23:42 2 MG Nitroglycerin 0.4 mg Q5MINP PRN SL 10/16/24 20:15 Morphine Sulfate 2 mg Q30M PRN IV 10/16/24 20:15 Ketorolac Tromethamine 15 mg Q8HP PRN IV 10/17/24 01:45 10/22/24 01:44 UNV Levofloxacin/ Dextrose 100 ml @ 100 mls/hr DAILY IV 10/18/24 10:00 10/21/24 10:03 100 MLS/HR General: Normal, Well developed, Well nourished Head/Eyes: Normal ENT: Normal Neck: Normal Lungs: Normal Cardiovascular: Normal Abdominal: Normal, Soft, Normal inspection, Non tender, No distension, Other (lower abdominal tender) Musculoskeletal: Normal Extremities: Normal Skin: Normal Neurological: Normal Labs and Microbiology Laboratory Tests 10/21/24 05:51 Test 10/21/24 05:51 Range/Units Serum Glucose 67 L 74-106 mg/dL Ass/Plan Labs and/or images reviewed: Labs reviewed by me, Image(s) reviewed by me Problems(with codes): (1) Diverticulitis of colon with perforation (2) Acute abdominal pain Assessment/Plan patient admitted mid sigmoid diverticulosis complicated with perforation patient complaint of lower abdominal pain, cramping, diarrhea and passing gas patient lower abdomen minimally tender Plan: NPO continue IV hydration and IV antibiotics Repeat CT tomorrow if pain does not improve Discussed with DR Lawrence 10/21/24 - patient admitted mid sigmoid diverticulosis complicated with perforation patient complaint of lower abdominal pain, cramping, diarrhea and passing gas patient lower abdomen minimally tender advance diet as tolerated reevaluate to [place] for possible discharge discussed with Dr. Lawrence Prognosis: Good Plan discussed with patient, Dr. Lawrence Visit Coding Surgery Date of Service if different f: Oct 21, 2024 Billing Provider: PINKY LAWRENCE MD Surgery Visit Codes: [id number] INP/OBS CARE(HIGH) [facility] Oct 21, 2024 12:44
[2024-10-21] MEDS: LACTULOSE 20Gm/30ML SOLN PO ONE (13:15)
[2024-10-21] MEDS: POTASSIUM EFFERVESENT TAB 25 MEQ PO ONE (14:00)
[2024-10-22 01:00] VITALS: BP 114/69; PULSE 50; RESP 16; TEMP 98; O2SAT 98
[2024-10-22 05:00] VITALS: BP 112/67; PULSE 42; RESP 16; TEMP 98.1; O2SAT 98
[2024-10-22 07:31] LABS: Calcium 9.7 mg/dL (8.7-10.4); Potassium 4.3 mmol/L (3.5-5.1); Sodium 142 mmol/L (136-145)
[2024-10-22 07:32] LABS: Anion Gap 7 (5-15); Carbon Dioxide 26 mmol/L (20-31); Chloride 109 mmol/L (98-107)
[2024-10-22 07:37] LABS: Blood Urea Nitrogen 12 mg/dL (9-23); Glucose 79 mg/dL (74-106)
[2024-10-22 08:00] VITALS: PULSE 60; RESP 17; O2SAT 98
[2024-10-22 09:00] VITALS: BP 127/75; PULSE 57; RESP 17; TEMP 97.8; O2SAT 95
--- NOTE | 2024-10-22 09:14 | DVHPN2 ---
Subjective Tolerating well regular diet; no abdominal pain/nausea/vomiting; brown bowel movements no blood and or pink color Reviewed: Care Plan, H&P, Labs, Medications, Previous Orders, Radiology, Other (Consultation) Changes from previous H/P or p: Changes Objective Vitals Vital Signs Date Time Temp Pulse Resp B/P (MAP) Pulse Ox O2 Delivery O2 Flow Rate FiO2 10/22/24 05:00 98.1 42 16 112/67 (82) 98 98.1 10/21/24 20:00 Room Air* 0 21 Intake/Output Intake and Output 10/22/24 07:00 Intake Total 2074 ml Balance 2074 ml Intake Oral 1874 ml IV Total 200 ml # Voids 4 # Bowel Movements 2 General Appearance: Alert, Oriented X3, Cooperative, No acute distress HEENT: Atraumatic Lungs: Clear to auscultation, Normal air movement Cardiovascular: Regular rate, Normal S1, Normal S2 Abdomen: Normal bowel sounds, Soft, No tenderness Extremities: No edema Neuro: Normal speech, Cranial nerves 3-12 NL Psych/Mental Status: Mental status NL, Mood NL Medications Current Medications Medications Dose Ordered Sig/Marco Route Start Time Stop Time Status Last Admin Dose Admin Metronidazole 100 ml @ 100 mls/hr Q8HR IV 10/17/24 06:00 10/21/24 14:00 100 MLS/HR Sodium Chloride 1,000 ml @ 60 mls/hr [id number] IV 10/16/24 20:15 10/21/24 20:33 60 MLS/HR Acetaminophen/ Hydrocodone Bitart 1 tab Q4HP PRN PO 10/16/24 20:15 Ondansetron HCl 4 mg Q4HP PRN IV 10/16/24 20:15 10/20/24 14:00 4 MG Docusate Sodium 100 mg BIDPRN PRN PO 10/16/24 20:15 Acetaminophen 650 mg Q6HP PRN PO 10/16/24 20:15 Morphine Sulfate 2 mg Q4HPRN PRN IV 10/16/24 20:15 10/19/24 23:42 2 MG Nitroglycerin 0.4 mg Q5MINP PRN SL 10/16/24 20:15 Morphine Sulfate 2 mg Q30M PRN IV 10/16/24 20:15 Ketorolac Tromethamine 15 mg Q8HP PRN IV 10/17/24 01:45 10/22/24 01:44 UNV Levofloxacin/ Dextrose 100 ml @ 100 mls/hr DAILY IV 10/18/24 10:00 10/21/24 10:03 100 MLS/HR Laboratory Results Laboratory Tests 10/21/24 05:51 10/22/24 06:19 Chemistry Test 10/22/24 06:19 Calcium Level 9.7 mg/dL (8.7-10.4) Urinalysis Test 10/16/24 15:42 Urine Color Light-orange (Yellow) Urine Clarity Ex.turbid (Clear) Urine pH 6.0 (5.0-9.0) Urine Specific [place] 1.030 (1.001-1.035) Urine Protein Trace (Negative) H Urine Ketones Negative (Negative) Urine Blood 2+ /uL (Negative) H Urine Nitrite Negative (Negative) Urine Bilirubin Negative (Negative) Urine Urobilinogen Normal mg/dL (Negative) Urine Leukocyte Esterase Negative /uL (Negative) Urine RBC 3 /hpf (0 - 3) Urine Microscopic WBC /HPF (0-3) Urine Squamous Epithelial Cells Few /hpf (<5) Urine Bacteria Few /hpf (None Seen) H Urine Mucus Few (None Seen) Urine Glucose Normal mg/dL (Normal) Labs and/or images reviewed: Labs reviewed by me, Image(s) reviewed by me Assessment/Plan Assessment/Plan A 48-year-old male patient; with past medical history of marijuana use disorder; who presented to the emergency department with acute abdomen. #Acute abdomen with nausea/vomiting/abdominal pain secondary to sigmoid diverticulitis with perforation; reviewed imaging studies; tolerated well regular diet; cleared by surgery for discharge; was on IV fluids and IV antibiotics; discharged on oral levofloxacin and metronidazole; to follow up with surgery within 2 to 4 weeks as outpatient #[place]/Red bowel movement; ordered fecal occult blood test that came back negative; no drop in hemoglobin; to follow up with GI within 2 to 4 weeks for colonoscopy #Sepsis with leukocytosis due to sigmoid diverticulitis with perforation; details and management as above; leukocytosis resolved; to follow up with primary care provider within 1 to 2 weeks #[place] in the setting of sepsis; resolved; most likely vasomotor nephropathy; was on IV fluids; avoid nephrotoxic agents; renal function normalized; to follow up with primary care provider within 1 to 2 weeks #Elevated total bilirubin in the setting of sepsis with hepatomegaly and hepatic steatosis; avoid hepatotoxic agents; resolved; to follow up with primary care provider within 1 to 2 weeks #Hypokalemia due to decreased oral intake; corrected by replacement; normal magnesium level; to follow up with primary care provider within 1 to 2 weeks #Marijuana use disorder; reviewed drug screen; counseled on marijuana use cessation; to follow up with primary care provider within 1 to 2 weeks #Obesity; counseled the patient importance of adopting healthy lifestyle with diet and exercise in order to lose weight; to follow up with primary care provider within 1 to 2 weeks This medical document was created using an electronic medical record system with computerized dictation system. Although this document has been carefully reviewed, there might still be some phonetic and typographical errors. These areas are purely typographical due to imperfections of the software programs, and do not reflect any compromise in the patient's medical care. Plan discussed with: Patient, Other (Nurse) My Orders Orders - EL CARDONA MD Procedure Category Date Status Time Regular Diet DIET 10/21/24 Transmitted Dinner Date of Service: Oct 22, 2024 Billing Provider: EL CARDONA MD Common Visit Codes: [id number] INP/OBS CARE(MOD) EL CARDONA MD Oct 22, 2024 09:14
--- NOTE | 2024-10-22 09:52 | DVHDS2 ---
Discharge Summary Date of Admission Oct 16, 2024 at 20:02 Date of Discharge: Oct 22, 2024 Admitting Diagnosis Abdominal pain/nausea/vomiting Labs/Diagnostic Data: Laboratory Results Test 10/22/24 06:19 10/21/24 14:00 10/21/24 05:51 10/20/24 07:26 Sodium Level 142 mmol/L (136-145) Potassium Level 4.3 mmol/L (3.5-5.1) Chloride Level 109 mmol/L (98-107) Carbon Dioxide Level 26 mmol/L (20-31) Anion Gap 7 (5-15) Blood Urea Nitrogen 12 mg/dL (9-23) Creatinine 1.09 mg/dL (0.700-1.30) Glomerular Filtration Rate Calc 84 mL/min (>90) BUN/Creatinine Ratio 11.0 (10.0-20.0) Serum Glucose 79 mg/dL (74-106) Calcium Level 9.7 mg/dL (8.7-10.4) Stool Occult Blood Negative (Negative) Stool Occult Blood Sample #3 (Negative) White Blood Count 10.5 10^3/uL (4.4-10.8) Red Blood Count 5.20 10^6/uL (4.5-5.90) Hemoglobin 16.0 g/dL (13.5-17.5) Hematocrit 45.4 % (41.0-53.0) Mean Corpuscular Volume 87.2 fL (80.0-100.0) Mean Corpuscular Hemoglobin 30.7 pg (28.0-32.0) Mean Corpuscular Hemoglobin Concent 35.3 g/dL (32.0-36.0) Red Cell Distribution Width 13.4 % (11.8-14.3) Platelet Count 298 10^3/uL (140-450) Mean Platelet Volume 7.7 fL (6.9-10.8) Neutrophils (%) (Auto) 64.6 % (37.0-80.0) Lymphocytes (%) (Auto) 23.1 % (10.0-50.0) Monocytes (%) (Auto) 10.5 % (0.0-12.0) Eosinophils (%) (Auto) 1.3 % (0.0-7.0) Basophils (%) (Auto) 0.5 % (0.0-2.0) Neutrophils # (Auto) 6.8 10 ^3/uL (1.6-8.6) Lymphocytes # (Auto) 2.4 10 ^3/uL (0.4-5.4) Monocytes # (Auto) 1.1 10 ^3/uL (0-1.3) Eosinophils # (Auto) 0.1 10 ^3/uL (0-0.8) Basophils # (Auto) 0.1 10 ^3/uL (0-0.2) Nucleated Red Blood Cells 0.1 % Magnesium Level 2.0 mg/dL (1.6-2.6) Total Bilirubin 0.7 mg/dL (0.2-1.0) Aspartate Amino Transferase (AST) 25 U/L (13-40) Alanine Aminotransferase (ALT) 28 U/L (7-40) Alkaline Phosphatase 60 U/L (46-116) Total Protein 7.0 g/dL (5.7-8.2) Albumin 4.1 g/dL (3.2-4.8) Test 10/16/24 17:05 10/16/24 16:19 10/16/24 15:42 Lactic Acid Level 2.0 mmol/L (0.4-2.0) Prothrombin Time 10.9 sec (9.3-11.8) Prothrombin Time INR 1.03 (0.9-1.15) Lipase 29 U/L (12-53) Plasma/Serum Blood Alcohol < 3.0 mg/dL (<10) Urine Color Light-orange (Yellow) Urine Clarity Ex.turbid (Clear) Urine pH 6.0 (5.0-9.0) Urine Specific [place] 1.030 (1.001-1.035) Urine Protein Trace (Negative) Urine Ketones Negative (Negative) Urine Blood 2+ /uL (Negative) Urine Nitrite Negative (Negative) Urine Bilirubin Negative (Negative) Urine Urobilinogen Normal mg/dL (Negative) Urine Leukocyte Esterase Negative /uL (Negative) Urine RBC 3 /hpf (0 - 3) Urine Microscopic WBC /HPF (0-3) Urine Squamous Epithelial Cells Few /hpf (<5) Urine Bacteria Few /hpf (None Seen) Urine Mucus Few (None Seen) Urine Glucose Normal mg/dL (Normal) Urine Opiates Screen Neg (NEGATIVE) Urine Fentanyl Screen Neg (NEGATIVE) Urine Barbiturates Screen Neg (NEGATIVE) Urine Phencyclidine Screen Neg (NEGATIVE) Urine Amphetamines Screen Neg (NEGATIVE) Urine Benzodiazepines Screen Neg (NEGATIVE) Urine Cocaine Screen Neg (NEGATIVE) Urine Cannabinoids Screen Pos (NEGATIVE) Other Laboratory Tests 10/22/24 06:19 10/21/24 05:51 Brief Hx & Hospital Course: A 48-year-old male patient; with past medical history of marijuana use disorder; who presented to the emergency department with acute abdomen. #Acute abdomen with nausea/vomiting/abdominal pain secondary to sigmoid diverticulitis with perforation; reviewed imaging studies; tolerated well regular diet; cleared by surgery for discharge; was on IV fluids and IV antibiotics; discharged on oral levofloxacin and metronidazole; to follow up with surgery within 2 to 4 weeks as outpatient #[place]/Red bowel movement; ordered fecal occult blood test that came back negative; no drop in hemoglobin; to follow up with GI within 2 to 4 weeks for colonoscopy #Sepsis with leukocytosis due to sigmoid diverticulitis with perforation; details and management as above; leukocytosis resolved; to follow up with primary care provider within 1 to 2 weeks #DARSHAN in the setting of sepsis; resolved; most likely vasomotor nephropathy; was on IV fluids; avoid nephrotoxic agents; renal function normalized; to follow up with primary care provider within 1 to 2 weeks #Elevated total bilirubin in the setting of sepsis with hepatomegaly and hepatic steatosis; avoid hepatotoxic agents; resolved; to follow up with primary care provider within 1 to 2 weeks #Hypokalemia due to decreased oral intake; corrected by replacement; normal magnesium level; to follow up with primary care provider within 1 to 2 weeks #Marijuana use disorder; reviewed drug screen; counseled on marijuana use cessation; to follow up with primary care provider within 1 to 2 weeks #Obesity; counseled the patient importance of adopting healthy lifestyle with diet and exercise in order to lose weight; to follow up with primary care provider within 1 to 2 weeks Physical Examination as documented in the progress note of the day of discharge This medical document was created using an electronic medical record system with computerized dictation system. Although this document has been carefully reviewed, there might still be some phonetic and typographical errors. These areas are purely typographical due to imperfections of the software programs, and do not reflect any compromise in the patient's medical care. Condition at Discharge: Stable Final Diagnosis/Problems List #Sepsis with leukocytosis due to sigmoid diverticulitis with perforation Rest of Diagnoses as above Discharge Disposition: Home Discharge Instruct/Medications Diet: Regular Activity: No Restrictions, As Tolerated Follow Up/Referral: Follow up with discharge clinic within one week; follow up with primary care provider within one week; follow up with surgery within 1 to 2 weeks; with GI within 2 to 4 weeks for colonoscopy Medications: Discharged on oral antibiotics levofloxacin and metronidazole Discharge Statement: "Patient was advised to return to the ER or call 911 if any headaches, dizziness, shortness of breath, chest pain, abdominal pain, bleeding, fevers, or worsening of medical condition. Patient was counseled about treatment plan, medications, possible side effects, patientverbalized understanding. All questions were answered to the best of my ability. This discharge took greater then 30 minutes in planning, reviewing documentation, counseling the patient, and discussing with other team members." ASSESSMENT ASSESSMENT Assessment #Sepsis with leukocytosis due to sigmoid diverticulitis with perforation; Date of Service: Oct 22, 2024 Billing Provider: EL CARDONA MD Common Visit Codes: 62911-[id number] DISCH DAY >30min EL CARDONA MD Oct 22, 2024 09:52
[2024-10-22 10:33] VITALS: BP 127/75; PULSE 57; RESP 17; TEMP 97.8; O2SAT 95
== END 2024-10-22 11:02 | disposition home or self-care (01) | DRG 871 ==
LOC: ER 15:08 → OVERFLOW 20:02 → TELE-WESTW 10-17 03:09 → WEST WING 10-18 06:09
PROVIDERS: ADMIT Internal Medicine; ATTEND Internal Medicine
DX: A41.9 Sepsis, unspecified organism (principal); N17.0 Acute kidney failure with tubular necrosis; K57.20 Diverticulitis of large intestine with perforation and abscess without bleeding; E66.9 Obesity, unspecified; F12.90 Cannabis use, unspecified, uncomplicated; E87.6 Hypokalemia; K59.00 Constipation, unspecified; Z68.33 Body mass index [BMI] 33.0-33.9, adult; K76.0 Fatty (change of) liver, not elsewhere classified
CPT/HCPCS: 36415; 71045; 74176; 80048; 80053; 80307; 80320; 81001; 82270; 83605; 83690; 83735; 85025; 85610; 86850; 86900; 86901; 96365; 96367; 99291; G0378; J1956; J2003; J2405; J3490